=== PATIENT | female | born 1940 | race Caucasian/White ===

== ENCOUNTER → 2023-02-19 | Outpatient (REF) | payer MEDICARE, SELFPAY ==
[2023-02-19 08:10] LABS: Hematocrit 36.7 % (37-47); Hemoglobin 11.7 g/dL (12.0-15.0); Mean Corp Hgb Conc 31.9 g/dL (32-36); Mean Corpuscular Hgb 28.7 pg (27.0-32.0); Mean Corpuscular Volume 90.2 fL (81-99); Mean Platelet Vol. 9.9 fl (6.2-12.0); Platelet Count 297 K/mm3 (150-450); RBC Distribution Width CV 13.2 % (11.6-14.6); RBC Distribution Width SD 43.6 fl (35.1-43.9); Red Blood Count 4.07 M/mm3 (4.2-5.4); White Blood Count 8.3 K/mm3 (4.4-11.0)
[2023-02-19 08:32] LABS: Anion Gap 3 (5-15); BUN 18 mg/dL (7-18); BUN/Creat Ratio 20.2 RATIO (10-20); Calcium,Total 8.7 mg/dL (8.5-10.1); Chloride 107 mmol/L (98-107); Cholesterol 142 mg/dL (200); Creatinine, Serum 0.89 mg/dL (0.55-1.02); EST Glomerular Filtration Rate 64 mL/min (>60); Est Glom Filt Rate - Afr Amer 77 mL/min (>60); Glucose 90 mg/dL (74-106); High Density Lipoprotein 68 mg/dL; Sodium Level 141 mmol/L (136-145); Triglycerides 66 mg/dL; Very Low Density Lipoprotein 13 mg/dL (5-40)
[2023-02-19 08:34] LABS: Hemoglobin A1c 5.7 % (3.8-5.6)
== END ==
LOC: OLS.WCC 04:55
PROVIDERS: Referring Provider Family Medicine; Visit Provider Family Medicine
DX: R73.09 Other abnormal glucose (principal); I10 Essential (primary) hypertension; E78.5 Hyperlipidemia, unspecified
CPT/HCPCS: 36415; 80048; 80061; 83036; 85027

== ENCOUNTER → 2023-05-21 | Outpatient (REF) | payer MEDICARE, SELFPAY ==
[2023-05-21 08:29] LABS: Hematocrit 37.4 % (37-47); Hemoglobin 11.7 g/dL (12.0-15.0); Mean Corp Hgb Conc 31.3 g/dL (32-36); Mean Corpuscular Hgb 28.4 pg (27.0-32.0); Mean Corpuscular Volume 90.8 fL (81-99); Mean Platelet Vol. 9.9 fl (6.2-12.0); Platelet Count 310 K/mm3 (150-450); RBC Distribution Width CV 13.2 % (11.6-14.6); RBC Distribution Width SD 43.8 fl (35.1-43.9); Red Blood Count 4.12 M/mm3 (4.2-5.4); White Blood Count 6.8 K/mm3 (4.4-11.0)
[2023-05-21 08:57] LABS: Anion Gap 5 (5-15); BUN 23 mg/dL (7-18); BUN/Creat Ratio 29.9 RATIO (10-20); Calcium,Total 8.7 mg/dL (8.5-10.1); Chloride 108 mmol/L (98-107); Creatinine, Serum 0.77 mg/dL (0.55-1.02); EST Glomerular Filtration Rate 76 mL/min (>60); Est Glom Filt Rate - Afr Amer 92 mL/min (>60); Glucose 101 mg/dL (74-106); Potassium 3.7 mmol/L (3.5-5.1); Sodium Level 141 mmol/L (136-145)
== END ==
LOC: OLS.WCC 05:00
PROVIDERS: Visit Provider Family Medicine
DX: R73.09 Other abnormal glucose (principal); F03.90 Unspecified dementia, unspecified severity, without behavioral disturbance, psychotic disturbance, mood disturbance, and anxiety; I10 Essential (primary) hypertension; Z79.899 Other long term (current) drug therapy; Z86.73 Personal history of transient ischemic attack (TIA), and cerebral infarction without residual deficits
CPT/HCPCS: 36415; 80048; 85027

== ENCOUNTER 2023-08-04 13:22 | Emergency (ER) | payer MEDICARE, SELFPAY ==
[2023-08-04 13:23] VITALS: BP 128/57; PULSE 87; RESP 16; TEMP 36.5; O2SAT 96; BMI 20.1
--- NOTE | 2023-08-04 13:31 | CT_ITS ---
EXAM: CT HEAD WITHOUT INTRAVENOUS CONTRAST CLINICAL INDICATION: head injury TECHNIQUE: Multiple axial images were obtained of the head without intravenous contrast. This CT exam was performed using one or more of the following dose reduction techniques: automated exposure control, adjustment of the mA and/or kV according to patient size, and/or use of iterative reconstruction technique. RADIATION DOSE: CTDIvol = 44.99 mGy, DLP = 779.24 mGy-cm COMPARISON: No relevant prior studies available. FINDINGS: BRAIN AND EXTRA-AXIAL SPACES: Hypodensities in the forceps minor and forceps major are confluent chronic white matter ischemic changes. Moderate cerebral atrophy, more central and cortical accounting for diminished central white matter volume, prominent cerebral sulci and disproportionate dilatation of the third and lateral ventricles. Normal cerebral aqueduct and fourth ventricle. No intra- or extra-axial hemorrhage. No intracranial mass or mass effect. Posterior fossa structures are unremarkable. Basal cisterns are patent. BONES/JOINTS: See above. VASCULATURE: Dense calcified plaques along the bilateral internal carotid artery siphons. Minimal calcified plaques in the intradural segments of both vertebral arteries. SINUSES: Unremarkable as visualized. Clear. MASTOID AIR CELLS: Unremarkable. Clear. ORBITS: Visualized globes, extraocular muscles, optic nerves and retrobulbar fat appear unremarkable. CT/Brain/Head without Contrast IMPRESSION: 1. No CT evidence of intracranial bleeding, intracranial mass, acute ischemic infarct or acute intracranial pathology. 2. Moderate cerebral atrophy and chronic white matter ischemic changes in both cerebral hemispheres. Electronically Signed: Hector Tolliver MD at 14:23 EST ,
--- NOTE | 2023-08-04 13:32 | EDS_ITS ---
<Statement entered by Norma Wagoner MD - 08/04/23 21:52> I have personally performed a face to face assessment of the patient and have reviewed the MARI Note. Patient sent in from local ECF secondary to fall. Patient reportedly fell and hit her head against a table this morning. She has dementia at baseline. Medication list was reviewed and she is not on anticoagulants. Patient sitting upright in bed no acute distress. No obvious evidence of head trauma. No scalp hematomas noted. Heart is regular rate and rhythm. Lung sounds are clear. Abdomen is soft and nontender. Patient spontaneously moves all 4 extremities. She is confused and does not answer questions. This reportedly is her baseline. CT scan of the head reveals chronic changes with no evidence of acute bleed. Patient discharged back to her ECF. HPI History of Present Illness Chief Complaint: Fall Narrative Narrative: 83-year-old female fell at her long term this morning at 7 AM and hit her head. Details are not clear as she was brought in by EMS. She was acting at her baseline which is alert and oriented x 0 but staff thought her pupils were sluggish and sent her in for evaluation. She is not on blood thinners. She does not speak much at baseline or follow commands. [facility] Medical History (Updated 08/04/23 @ 14:05 by JOCELYN Jarquin) Alzheimer's disease, unspecified Chronic kidney disease, stage 3a Essential (primary) hypertension Hyperlipidemia Major depressive disorder, recurrent, mild Other abnormalities of gait and mobility Vascular dementia, unspecified severity, without behavioral disturbance, psychotic disturbance, mood disturbance, and anxiety Home Medications amlodipine 2.5 mg tablet 2.5 mg PO DAILY 08/04/23 [History Last Taken Unknown] aspirin 81 mg tablet,delayed release (Adult Aspirin Regimen) 81 mg PO DAILY 08/04/23 [History Last Taken Unknown] doxepin 25 mg capsule 25 mg PO QHS 08/04/23 [History Last Taken Unknown] escitalopram oxalate 10 mg tablet 10 mg PO DAILY 08/04/23 [History Last Taken Unknown] hydrochlorothiazide 25 mg tablet 25 mg PO DAILY 08/04/23 [History Last Taken Unknown] lisinopril 10 mg tablet 10 mg PO DAILY 08/04/23 [History Last Taken Unknown] melatonin 10 mg capsule 10 mg PO QHS 08/04/23 [History Last Taken Unknown] multivitamin (Daily Multi-Vitamin tablet) 1 tab PO DAILY 08/04/23 [History Last Taken Unknown] potassium chloride 10 mEq tablet,extended release (Klor-Con) 10 meq PO DAILY 08/04/23 [History Last Taken Unknown] sennosides 8.6 mg tablet (Natural Senna Laxative) 17.2 mg PO DAILY 08/04/23 [History Last Taken Unknown] Allergy/AdvReac Type Severity Reaction Status Date / Time No Known Allergies Allergy Verified 08/04/23 13:25 Social History (System 04/17/23 @ 07:56 by Colleen Romano) Smoking Status: Unknown if ever smoked ROS ROS ED ROS Narrative Unable to obtain due to dementia EXAM Physical Exam Narrative Exam Narrative: CONST: Patient sitting in no acute distress. EYES: Normal inspection. PERRL. HEAD: Head normocephalic atraumatic, no raccoon eyes or grider sign, no hemotympanum, no nasal septal hematoma, no CSF otorrhea or rhinorrhea. NECK: Normal inspection. No tenderness, no step-offs. RESP: No respiratory distress, CTAB. CVS: Regular rate and rhythm, no murmur, no gallop. ABD: Soft and nontender, no guarding or rebound, nondistended. SKIN: Color normal, no rash, warm, dry, intact. EXTREMITIES: Normal appearance, no pedal edema. NEURO: Awake, does not interact or follow commands, does not speak. Moving all extremities. PSYCH: Normal affect. Const Vital Signs: 08/04/23 13:23 Temperature 97.7 F L Temperature Source Temporal Pulse Rate 87 Respiratory Rate 16 Blood Pressure 128/57 H Blood Pressure Mean 80 Pulse Ox 96 Oxygen Delivery Method Room Air MDM MDM MDM Narrative Medical decision making narrative: History gathered from: EMS Patient with advanced dementia had a fall at her long term this morning with head injury. Staff was concerned her pupils were sluggish. She is awake and in no distress. She does not talk or interact which is her baseline. Alert to 0. She has no external signs of injury and is spontaneously moving all extremities. CT brain shows no evidence of traumatic injury. Staff member from long term arrived and I relayed these results and she was discharged in stable condition. Differential: Closed head injury, skull fracture, intracranial hemorrhage Radiography Diagnostic Testing: Clinical Impression(s) from Imaging Studies Brain CT 08/04/23 13:31 IMPRESSION: 1. No CT evidence of intracranial bleeding, intracranial mass, acute ischemic infarct or acute intracranial pathology. 2. Moderate cerebral atrophy and chronic white matter ischemic changes in both cerebral hemispheres. Electronically Signed: Hector Tolliver MD at 14:23 EST , Discharge Plan Triage Chief Complaint: Fall ED Midlevel Provider: Demetrice Aragon ED Provider: Norma Wagoner Dx/Rx/DC Orders Clinical Impression: Head injury Instructions: ED Fall Prevention Prescriptions: No Action amlodipine 2.5 mg tablet 2.5 mg PO DAILY aspirin [Adult Aspirin Regimen] 81 mg tablet,delayed release (DR/EC) 81 mg PO DAILY doxepin 25 mg capsule 25 mg PO QHS escitalopram oxalate 10 mg tablet 10 mg PO DAILY hydrochlorothiazide 25 mg tablet 25 mg PO DAILY potassium chloride [Klor-Con 10] 10 mEq tablet extended release 10 meq PO DAILY lisinopril 10 mg tablet 10 mg PO DAILY melatonin 10 mg capsule 10 mg PO QHS multivitamin [Daily Multi-Vitamin] Tablet 1 tab PO DAILY sennosides [Natural Senna Laxative] 8.6 mg tablet 17.2 mg PO DAILY Primary Care Provider: Biju Camacho Referrals: Biju Camacho MD [Primary Care Provider] - Activity Restrictions/Additional Instructions: CT scan of the brain showed no evidence of traumatic injury from today's fall. Disposition Disposition: Home, Self Care
--- OUTSIDE RECORDS SUMMARY | 2023-08-04 14:26 | XMS RPT_ITS | CCD ---
Author Name Unknown Address [address] [place] [address] Organization [facility] Care Team Providers Care [employer] Crewmember Name Role Phone Anna Shanks MD Primary Care Provider ANNA SHANKS Primary Care Unavailable RANDEE AGUIRRE Attending Unavailable BROWN, JOCELYNE Referring Unavailable TALAMPSAJI, ANNA Ruth Primary Care Unavailable RADHA BROWNI Referring Unavailable SUSANA, JOCELYNE Attending Unavailable ROSA, ANNA Ruth Primary Care Unavailable MANDEEPAMPSAJI, ANNA Ruth Primary Care Unavailable RADHA BROWNI Referring Unavailable BROWN, JOCELYNE Attending Unavailable MANDEEPAMPSAJI, ANNA D Primary Care Unavailable TALAMPAS, ANNA D Primary Care Unavailable RANDEE AGUIRRE Attending Unavailable TALAMPSAJI, ANNA Ruth Attending Unavailable ROSA, ANNA D Primary Care Unavailable Medications Current Medications Medication Drug Class(es) Dates Sig (Normalized) Sig (Original) amLODIPine 2.5 mg oral tablet (15 sources) Dihydropyridine Calcium Channel Nakul Start: 05-17-2022 End: 05-17-2023 take 1 tablet by mouth once daily amLODIPine (NORVASC) 2.5 mg tablet Indications: Hypertension, unspecified type Take 1 tablet by mouth once daily. 90 tablet 3 05/17/2022 05/17/2023 Active Completed/Discontinued Medications Medication Drug Class(es) Dates Sig (Normalized) Sig (Original) donepezil hydrochloride 10 mg oral tablet (15 sources) Start: 05-17-2022 take 1 tablet by mouth once daily at bedtime donepezil (ARICEPT) 10 mg tablet Indications: Alzheimer's dementia without behavioral disturbance, unspecified timing of dementia onset Take 1 tablet(s) every day by oral route at bedtime 90 tablet 3 05/17/2022 Active Problems Active Problems Problem Classification Problem Date Documented Da te Episodic/Chronic Acute cerebrovascular disease (17 sources) Cerebral infarction; Translations: [Cerebral infarction due to unspecified occlusion or stenosis of unspecified precerebral arteries] Onset: 02-27-2019 Chronic Chronic kidney disease (9 sources) Chronic kidney disease stage 3A ; Translations: [Stage 3a chronic kidney disease (HCC)] Onset: 04-04-2022 Chronic Chronic kidney disease (1 source) Chronic kidney disease; Translations: [Stage 3a chronic kidney disease (HCC)] Onset: 04-04-2022 Delirium, dementia, and amnestic and other cognitive disorders (20 sources) Alzheimer's disease; Translations: [Alzheimer's disease, unspecified] Onset: 02-27-2019 Chronic Disorders of lipid metabolism (18 sources) Hyperlipidemia; Translations: [Hyperlipidemia, unspecified] Onset: 02-27-2019 Chronic Essential hypertension (20 sources) Hypertensive disorder; Translations: [Essential (primary) hypertension] Onset: 02-27-2019 Chronic Immunizations and screening for infectious disease (8 sources) Requires varicella vaccination; Translations: [Encounter for immunization] Onset: 04-04-2022 Episodic Mood disorders (19 sources) Depressive disorder; Translations: [Depression] Onset: 04-20-2022 02-27-2019 Chronic Other nervous system disorders (1 source) Impairment of balance; Translations: [Other abnormalities of gait and mobility] Episodic Other nervous system disorders (1 source) Abnormal gait; Translations: [Unspecified abnormalities of gait and mobility] Episodic Past or Other Problems Problem Classification Problem Date Documented Date Episodic/Chronic Diabetes mellitus without complication (17 sources) Disorder of glucose metabolism; Translations: [Other abnormal glucose] Onset: 02-23-2021 02-23-2021 Episodic Other nervous system disorders (15 sources) Abnormal gait due to impairment of balance; Translations: [Other abnormalities of gait and mobility] Onset: 11-18-2020 11-18-2020 Episodic Results Test Name Value Interpretation Reference Range Facil ity Vital Signs Date Time Vital Sign Value Performing Clinician Raimundo forte 11-03-2022 13:28-040 Body weight 53.52 kg Jocelyne Brown APRN.BRAKE REPAIR MECHANIC Work Phone: [facility] 11-03-2022 13:28-040 Diastolic blood pressure 56 mm[Hg] Jocelyne Brown APRN.BRAKE REPAIR MECHANIC Work Phone: [facility] 11-03-2022 13:28-0400 Heart rate 60 /min Jocelyne Brown MANAGER INDUSTRIAL.BRAKE REPAIR MECHANIC Work Phone: [facility] 11-03-2022 13:28-0400 Respiratory rate 14 /min Jocelyne Brown MANAGER INDUSTRIAL.BRAKE REPAIR MECHANIC Work Phone: [facility] 11-03-2022 13:28-0400 SaO2% (BldA) [Mass fraction] 98 % Jocelyne Brown MANAGER INDUSTRIAL.BRAKE REPAIR MECHANIC Work Phone: [facility] 11-03-2022 13:28-0400 Systolic blood pressure 108 mm[Hg] Jocelyne Brown MANAGER INDUSTRIAL.BRAKE REPAIR MECHANIC Work Phone: [facility] 08-22-2022 18:36-0500 Body temperature 98.1 [degF] Anna Shanks MD Work Phone: [facility] 08-22-2022 18:36-0500 Body weight 52.94 kg Anna Shanks MD Work Phone: [facility] 08-22-2022 18:36-0500 Diastolic blood pressure 82 mm[Hg] Anna Shanks MD Work Phone: [facility] 08-22-2022 18:36-0500 Heart rate 87 /min Anna Shanks MD Work Phone: [facility] 08-22-2022 18:36-0500 Respiratory rate 18 /min Anna Shanks MD Work Phone: [facility] 08-22-2022 18:36-0500 SaO2% (BldA) [Mass fraction] 95 % Anna Shanks MD Work Phone: [facility] 08-22-2022 18:36-0500 Systolic blood pressure 124 mm[Hg] Anna Shanks MD Work Phone: [facility] 04-04-2022 09:44-0400 Body height 146.1 cm Jocelyne Brown MANAGER INDUSTRIAL.BRAKE REPAIR MECHANIC Work Phone: [facility] 04-04-2022 09:44-0400 Body weight 52.16 kg Jocelyne Brown MANAGER INDUSTRIAL.BRAKE REPAIR MECHANIC Work Phone: [facility] 04-04-2022 09:44-0400 Diastolic blood pressure 58 mm[Hg] Jocelyne Brown MANAGER INDUSTRIAL.BRAKE REPAIR MECHANIC Work Phone: [facility] 04-04-2022 09:44-0400 Heart rate 60 /min Jocelyne Costellos MANAGER INDUSTRIAL.BRAKE REPAIR MECHANIC Work Phone: [facility] 04-04-2022 09:44-0400 Respiratory rate 16 /min Jocelyne Costellos MANAGER INDUSTRIAL.BRAKE REPAIR MECHANIC Work Phone: [facility] 04-04-2022 09:44-0400 Systolic blood pressure 108 mm[Hg] Jocelyne Costellos MANAGER INDUSTRIAL.BRAKE REPAIR MECHANIC Work Phone: [facility] Encounters Encounter Date Encounter Type Care Provider Facility Start: 11-28-2022 ambulatory Patito Parra RN [facility] Procedures Date Procedure Procedure Detail Performing Clinician Start: 09-18-2022 Follow-up visit Follow Up WESTON AGUIRRE Start: 08-22-2022 INFLUENZA SEASONAL QUADRIVALENT HIGH DOSE AGE 65+ Anna Shanks MD Work Phone: Plan of Treatment Date Care Activity Detail Author Start: 11-03-2025 DIABETES SCREEN DIABETES SCREEN [facility] Start: 04-04-2025 DIABETES SCREEN DIABETES SCREEN [facility] Start: 11-28-2023 DIABETES SCREEN DIABETES SCREEN [facility] Start: 08-22-2023 SHINGRIX VACCINE (1 of 2) SHINGRIX V ACCINE (1 of 2) [facility] Immunizations Immunization Date Immunization Notes Care Provider Rohit carlisle 08-22-2022 influenza, high-dose , quadrivalent vaccine (FLUZONE HIGH DOSE QUADRIVALENT) Anna Shanks MD Work Phone: [facility] 10-10-2021 COVID-19 vaccine, ag e 12+ yr (PFIZER-BIONTECH - MARINELLI TOP) Whitney Espino [facility] Work Phone: 12-17-2020 COVID-19 vaccine, ag e 12+ yr (PFIZER-BIONTECH - PURPLE TOP) Whitney Espino [facility] Work Phone: 11-26-2020 COVID-19 vaccine, ag e 12+ yr (PFIZER-BIONTQueryly - PURPLE TOP) [facility] 08-17-2020 influenza, high-dose , quadrivalent vaccine (FLUZONE HIGH DOSE QUADRIVALENT) [facility] 08-29-2019 pneumococcal polysaccharide vaccine, 23 valent [facility] 08-22-2019 influenza, high dose seasonal, preservative-free [facility] 04-25-2018 influenza, high dose seasonal, preservative-free [facility] 04-20-2017 influenza, high dose seasonal, preservative-free [facility] 09-07-2015 pneumococcal conjuga te vaccine, 13 valent [facility] Payers Date Payer Category Payer Medicare UHC AAR MEDICAR E UHC AARP MEDICARE HMO [id number] 2019-Present [phone] [address] [address] [place] [address] [facility] [id number] 2019 Medicare UHC AAR MEDICAR E UHC AARP MEDICARE HMO [id number] 2019-Present [phone] [address] [address] [place] [address] [facility] [id number] 2019 Medicare [id number] Social History Date Type Detail Facility Start: 02-27-2019 End: 04-04-2022 Tobacco smoking status NHIS Never smoked tobacco [facility] Work Phone: Start: 02-27-2019 End: 04-04-2022 Tobacco use and exposure Smokeless tobacco non-user [facility] Work Phone: Start: 02-23-2021 End: 11-03-2022 Alcohol intake Lifetime non-drinker (finding) [facility] Start: 02-14-2021 History SDOH Alcohol Frequency 1 [facility] Start: 02-14-2021 History SDOH Alcohol Std Drinks 98 [facility] Start: 05-22-2019 History SDOH Alcohol Comment none [facility] Start: 02-14-2021 History SDOH Social Connections Phone 2 [facility] Start: 02-14-2021 History SDOH Social Connections Get Together 5 [facility] Start: 02-14-2021 History SDOH Social Connections Living 7 [facility] Start: 02-14-2021 Education 17 [facility] Start: 1940 Sex Assigned At Not on file [facility] Start: 03-25-2022 End: 04-04-2022 Exposure to SARS-CoV-2 (event) Not sure [facility] Work Phone: Clinical Notes 11-16-2021 to 11-28-2022 Patito Parra RN - 11/28/2022 5:52 AM Aisha Brown APRN.BRAKE REPAIR MECHANIC - 11/03/2022 1:20 PM EDTTelephone Encounter - Josefina García LPN - 10/31/2022 11:17 AM EDTPatient Instructions Note Date & Type Note Facility 11-28-2022 Note Patient Outreach (NE TNAV) LORAINE GOFF ([id number]) 1940 F Date Time Provider Department 11/28/22 PATITO PARRA During your visit today, we recorded the following information about you: Patito Parra RN 11/28/2022 5:55 AM Signed ACM WADE RN Action/FYI: Medication Adherence review completed per request of [facility]. NO PROVIDER ACTION REQUIRED Please see requests in the Summary/Findings section below Patient identified by name and date of . Patient Attributed To: QAE Payer: [facility] Reason for review or outreach: Medication Adherence Medication Adherence Review Details: Cholesterol and Hypertension Summary / Findings: Patient is now living at [facility] where they take care of her meds Action Taken: Data submitted to Payer Other Contact made with patient: No, Chart review only. Signature: Patito Parra RN Allergies As of Date: 11/28/2022 (No Known Allergies) Date Reviewed: 11/03/2022 Reviewed by: Jennifer Trimble LPN - Fully Assessed Reason for Visit: ACM WADE RN [[id number]] Cmt: Medication Adherence review per request of payer Prescriptions as of 11/28/2022 - escitalopram oxalate (LEXAPRO) 10 mg tablet Take 1 tablet by mouth once daily. - lisinopril (ZESTRIL, PRINIVIL) 10 mg tablet Take 1 tablet by mouth once daily. - donepezil (ARICEPT) 10 mg tablet Take 1 tablet(s) every day by oral route at bedtime - potassium chloride (K-TAB) 10 mEq tablet Take 1 tablet by mouth daily with breakfast. - amLODIPine (NORVASC) 2.5 mg tablet Take 1 tablet by mouth once daily. - rosuvastatin (CRESTOR) 10 mg tablet Take 1 tablet by mouth once daily. - aspirin, enteric coated (ASPIRIN, ENTERIC COATED) 81 mg EC tablet Take 1 tablet by mouth once daily. - hydroCHLOROthiazide (HYDRODIURIL, ESIDRIX) 25 mg tablet Take 1 tablet by mouth once daily. - Multivitamin capsule Take 1 capsule by mouth once daily. Problem List As Of Date 11/28/2022 Noted Resolved Hypertension [I10] Hyperlipemia [E78.5] Depression [F32.A] Cerebral infarction due to occlusion or stenosi* Alzheimer disease [G30.9, F02.80] Mixed cortical and subcortical vascular dementi*11/18/2020 Abnormality of gait due to impairment of balanc*11/18/2020 Impaired glucose metabolism [R73.09] 02/23/2021 Stage 3a chronic kidney disease (HCC) [N18.31] 04/04/2022 Mixed Alzheimer's and vascular dementia (HCC) [*04/20/2022 Mild depression [F32.A] 04/20/2022 Encounter Status:Closed by PATITO PARRA on 11/28/22 [facility] 11-28-2022 Note HNO ID: [id number] Author: Patito Parra RN Service: ? Author Type: Registered Nurse Type: Progress Notes Filed: 11/28/2022 5:55 AM Note Text: ACM WADE RN Action/FYI: Medication Adherence review completed per request of [facility]. NO PROVIDER ACTION REQUIRED Please see requests in the Summary/Findings section below Patient identified by name and date of . Patient Attributed To: CANDELARIA Payer: [facility] [employer] Reason for review or outreach: Medication Adherence Medication Adherence Review Details: Cholesterol and Hypertension Summary / Findings: Patient is now living at [facility] where they take care of her meds Action Taken: Data submitted to Pay Other Contact made with patient: No, Chart review only. Signature: Patito Parra RN [facility] 11-28-2022 History of Present illness Narrative ACM WADE RN Action/FYI: Medication Adherence review completed per request of [facility]. NO PROVIDER ACTION REQUIRED Please see requests in the Summary/Findings section below Patient identified by name and date of . Patient Attributed To: QAE Payer: [facility] Reason for review or outreach: Medication Adherence Medication Adherence Review Details: Cholesterol and Hypertension Summary / Findings: Patient is now living at [facility] where they take care of her meds Action Taken: Data submitted to Pay Other Contact made with patient: No, Chart review only. Signature: Patito Parra RN documented in this encounter [facility] 11-03-2022 Note HNO ID: [id number] Author: Jocelyne Brown APRN.BRAKE REPAIR MECHANIC Service: ? Author Type: Nurse Specialist Type: Progress Notes Filed: 11/03/2022 2:13 PM Note Text: Subjective HPI Loraine Goff is a 82 year old female. 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 SNF. Presents today with family member that provides HPI. Currently living with family. Notes no behavioral concerns. Sleeping well. Maintaining oral intake. Notes difficulty with arising from chair and taking stairs, some decreased mobility. Brain health / neurology appointment 09/2022, noted mixed Alzheimer's and vascular dementia. Mild depression. Noted deficits in forming new memory Visio spatial skills learning planning tasks keeping track of events that have happened, memory and word retrieval attention multitasking: Verbal fluency language abstraction judgment and thinking. Increasing difficulty with ADLs. Some wandering is noted. Some status post anterior overdose later in the day with confusion consistent with owning. Started on escitalopram 5 mg 04/2022, increased to 10 mg 09/2022.Continued on donepezil. Labwork ordered not yet completed. HTN: Ms. Goff is without headache, chest pain, palpitations, dyspnea, peripheral edema, orthopnea, fatigue and PND. Last 14 Encounter BP Readings: Date: BP: 11/03/2022 108/56 08/22/2022 124/82 04/19/2022 163/57 04/04/2022 108/58 11/18/2020 135/49 08/17/2020 100/80 03/19/2020 110/60 02/12/2020 110/43 11/24/2019 122/76 08/29/2019 132/70 05/22/2019 122/57 02/27/2019 130/60 Hyperlipidemia. Ms. Goff doing well on current therapy. Her most recent lipid panels are: Cholesterol, Total (mg/dL) Date Value 04/04/2022 169 Total Cholesterol, Nonfasting (mg/dL) Date Value 03/19/2020 167 HDL Cholesterol (mg/dL) Date Value 04/04/2022 71 HDL Cholesterol, Nonfasting (mg/dL) Date Value 03/19/2020 72 LDL Cholesterol (mg/dL) Date Value 04/04/2022 82 LDL Cholesterol, Nonfasting (mg/dL) Date Value 03/19/2020 77 Triglyceride (mg/dL) Date Value 04/04/2022 82 Triglycerides, Nonfasting (mg/dL) Date Value 03/19/2020 90 Review of Systems Constitutional: Negative. Respiratory: Negative. Cardiovascular: Negative. Objective BP 108/56 Pulse 60 Resp 14 Wt 53.5 kg (118 lb) SpO2 98% BMI 25.09 kg/m? Physical Exam Vitals and nursing note reviewed. Constitutional: General: She is not in acute distress. Appearance: She is well-developed. She is not diaphoretic. HENT: Head: Normocephalic and atraumatic. Eyes: Conjunctiva/sclera: Conjunctivae normal. Neck: Thyroid: No thyromegaly. Vascular: No JVD. Trachea: No tracheal deviation. Cardiovascular: Rate and Rhythm: Normal rate and regular rhythm. Pulses: Carotid pulses are 2+ on the right side and 2+ on the left side. Radial pulses are 2+ on the right side and 2+ on the left side. Heart sounds: Normal heart sounds. Pulmonary: Effort: Pulmonary effort is normal. Breath sounds: Normal breath sounds. Abdominal: General: Bowel sounds are normal. Palpations: Abdomen is soft. Lymphadenopathy: Cervical: No cervical adenopathy. Skin: General: Skin is warm and dry. Neurological: Mental Status: She is alert. ALLERGIES No Known Allergies Current Outpatient Medications Medication Sig escitalopram oxalate (LEXAPRO) 10 mg tablet Take 1 tablet by mouth once daily. lisinopril (ZESTRIL, PRINIVIL) 10 mg tablet Take 1 tablet by mouth once daily. donepezil (ARICEPT) 10 mg tablet Take 1 tablet(s) every day by oral route at bedtime potassium chloride (K-TAB) 10 mEq tablet Take 1 tablet by mouth daily with breakfast. amLODIPine (NORVASC) 2.5 mg tablet Take 1 tablet by mouth once daily. rosuvastatin (CRESTOR) 10 mg tablet Take 1 tablet by mouth once daily. aspirin, enteric coated (ASPIRIN, ENTERIC COATED) 81 mg EC tablet Take 1 tablet by mouth once daily. hydroCHLOROthiazide (HYDRODIURIL, ESIDRIX) 25 mg tablet Take 1 tablet by mouth once daily. Multivitamin capsule Take 1 capsule by mouth once daily. No current facility-administered medications for this visit. PAST MEDICAL HISTORY Diagnosis Date Alzheimer disease (HCC) Cerebral infarction due to occlusion or stenosis of precerebral artery (HCC) 2016 Depression Hyperlipemia Hypertension Social History Tobacco Use Smoking status: Never Smokeless tobacco: Never Vaping Use Vaping Use: Never u (more content not included)... [facility] 11-03-2022 History of Present illness Narrative Subjective HPI Loraine Goff is a 82 year old female. 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 SNF. Presents today with family member that provides HPI. Currently living with family. Notes no behavioral concerns. Sleeping well. Maintaining oral intake. Notes difficulty with arising from chair and taking stairs, some decreased mobility. Brain health / neurology appointment 09/2022, noted mixed Alzheimer's and vascular dementia. Mild depression. Noted deficits in forming new memory Visio spatial skills learning planning tasks keeping track of events that have happened, memory and word retrieval attention multitasking: Verbal fluency language abstraction judgment and thinking. Increasing difficulty with ADLs. Some wandering is noted. Some status post anterior overdose later in the day with confusion consistent with sundowning. Started on escitalopram 5 mg 04/2022, increased to 10 mg 09/2022.Continued on donepezil. Labwork ordered not yet completed. HTN: Ms. Goff is without headache, chest pain, palpitations, dyspnea, peripheral edema, orthopnea, fatigue and PND. Last 14 Encounter BP Readings: Date: BP: 11/03/2022 108/56 08/22/2022 124/82 04/19/2022 163/57 04/04/2022 108/58 11/18/2020 135/49 08/17/2020 100/80 03/19/2020 110/60 02/12/2020 110/43 11/24/2019 122/76 08/29/2019 132/70 05/22/2019 122/57 02/27/2019 130/60 Hyperlipidemia. Ms. Goff doing well on current therapy. Her most recent lipid panels are: Cholesterol, Total (mg/dL) Date Value 04/04/2022 169 Total Cholesterol, Nonfasting (mg/dL) Date Value 03/19/2020 167 HDL Cholesterol (mg/dL) Date Value 04/04/2022 71 HDL Cholesterol, Nonfasting (mg/dL) Date Value 03/19/2020 72 LDL Cholesterol (mg/dL) Date Value 04/04/2022 82 LDL Cholesterol, Nonfasting (mg/dL) Date Value 03/19/2020 77 Triglyceride (mg/dL) Date Value 04/04/2022 82 Triglycerides, Nonfasting (mg/dL) Date Value 03/19/2020 90 Review of Systems Constitutional: Negative. Respiratory: Negative. Cardiovascular: Negative. Objective BP 108/56 Pulse 60 Resp 14 Wt 53.5 kg (118 lb) SpO2 98% BMI 25.09 kg/m Physical Exam Vitals and nursing note reviewed. Constitutional: General: She is not in acute distress. Appearance: She is well-developed. She is not diaphoretic. HENT: Head: Normocephalic and atraumatic. Eyes: Conjunctiva/sclera: Conjunctivae normal. Neck: Thyroid: No thyromegaly. Vascular: No JVD. Trachea: No tracheal deviation. Cardiovascular: Rate and Rhythm: Normal rate and regular rhythm. Pulses: Carotid pulses are 2+ on the right side and 2+ on the left side. Radial pulses are 2+ on the right side and 2+ on the left side. Heart sounds: Normal heart sounds. Pulmonary: Effort: Pulmonary effort is normal. Breath sounds: Normal breath sounds. Abdominal: General: Bowel sounds are normal. Palpations: Abdomen is soft. Lymphadenopathy: Cervical: No cervical adenopathy. Skin: General: Skin is warm and dry. Neurological: Mental Status: She is alert. ALLERGIES No Known Allergies Current Outpatient Medications Medication Sig escitalopram oxalate (LEXAPRO) 10 mg tablet Take 1 tablet by mouth once daily. lisinopril (ZESTRIL, PRINIVIL) 10 mg tablet Take 1 tablet by mouth once daily. donepezil (ARICEPT) 10 mg tablet Take 1 tablet(s) every day by oral route at bedtime potassium chloride (K-TAB) 10 mEq tablet Take 1 tablet by mouth daily with breakfast. amLODIPine (NORVASC) 2.5 mg tablet Take 1 tablet by mouth once daily. rosuvastatin (CRESTOR) 10 mg tablet Take 1 tablet by mouth once daily. aspirin, enteric coated (ASPIRIN, ENTERIC COATED) 81 mg EC tablet Take 1 tablet by mouth once daily. hydroCHLOROthiazide (HYDRODIURIL, ESIDRIX) 25 mg tablet Take 1 tablet by mouth once daily. Multivitamin capsule Take 1 capsule by mouth once daily. No current facility-administered medications for this visit. PAST MEDICAL HISTORY Diagnosis Date Alzheimer disease (HCC) Cerebral infarction due to occlusion or stenosis of precerebral artery (HCC) 2016 Depression Hyperlipemia Hypertension Social History Tobacco Use Smoking status: Never Smokeless tobacco: Never Vaping Use Vaping Use: Never used Substance Use Topics Alcohol use: Never Comment: none Drug use: Never Component Latest Ref Rng & Units 04/04/2022 WBC 3.70 - 11.00 k/uL 7.80 RBC 3.90 - 5.20 m/uL 4.51 Hemoglobin 11.5 - 15.5 g/dL 12.8 Hematocrit 36.0 - 46.0 % 40.6 MCV 80.0 - 100.0 fL 90.0 MCH 26.0 - 34.0 pg 28.4 MCHC 30.5 - 36.0 g/dL 31.5 RDW-CV 11.5 - 15.0 % 13.8 Platelet Count 150 - 400 k/uL 279 MPV 9.0 - 12.7 fL 10.5 Neut% % 50.8 Abs Neut (ANC) 1.45 - 7.50 k/uL 3.96 Lymph% % 36.7 Abs Lymph 1.00 - 4.00 k/uL 2.86 Sierra% % 10.6 Abs Sierra <0.87 k/uL 0.83 Eosin% % 1.7 Abs Eosin <0.46 k/uL 0.13 Baso% % 0.1 Abs Baso <0.11 k/uL <0.03 Immature Gran % % 0.1 IMMATURE GRANS (ABS) <0.10 k/uL <0.03 NRBC /100 WBC 0.0 Absolute nRBC <0.01 k/uL <0.01 DTYPE Auto Protein, Total 6.3 - 8.0 g/dL 7.4 Albumin 3.9 - 4.9 g/dL 4.1 Calcium 8.5 - 10.2 mg/dL 10.1 Bilirubin, Total 0.2 - 1.3 mg/dL 0.6 Alkaline Phosphatase 34 - 123 U/L 112 AST 13 - 35 U/L 28 ALT 7 - 38 U/L 16 Glucose 74 - 99 mg/dL 108 (H) BUN 7 - 21 mg/dL 32 (H) Creatinine 0.58 - 0.96 mg/dL 1.26 (H) Sodium 136 - 144 mmol/L 140 Potassium 3.7 - 5.1 mmol/L 4.2 Chloride 97 - 105 mmol/L 102 CO2 22 - 30 mmol/L 27 Anion Gap 9 - 18 mmol/L 11 eGFR >=60 mL/min/1.73m 42 (L) Cholesterol, Total <200 mg/dL 169 Triglyceride <150 mg/dL 82 HDL Cholesterol >39 mg/dL 71 Non HDL Cholesterol <130 mg/dL 98 Fasting Time hrs 12 VLDL Cholesterol <30 mg/dL 16 TC:HDL Ratio <5.10 2.38 LDL Cholesterol <100 mg/dL 82 LDL:HDL Ratio <2.54 1.15 Hemoglobin A1C 4.3 - 5.6 % 5.8 (H) Estimated Average Glucose mg/dL 120 ASSESSMENT/PLAN: 1. Alzheimer disease (HCC) - ICD9: 331.0, ICD10: G30.9, F02.80 (primary diagnosis) 2. 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) - ICD9: 290.40, ICD10: F01.50 3. 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 Followed by neurology provider [facility] - follow up March 2023 advised, needs to be scheduled 4. Screening for tuberculosis - ICD9: V74.1, ICD10: Z11.1 - BLOOD TB SCREEN 5. Primary hypertension - ICD9: 401.9, ICD10: I10 controlled Stable, currently controlled, continue to monitor. - COMP METABOLIC PANEL - CBC + DIFF - LIPID PANEL, NONFASTING 6. Hyperlipidemia, unspecified hyperlipidemia type - ICD9: 272.4, ICD10: E78.5 Stable, currently controlled, continue to monitor. - LIPID PANEL, NONFASTING 7. Impaired glucose metabolism - ICD9: 790.29, ICD10: R73.09 - HGB A1C 8. Stage 3a chronic kidney disease (HCC) - ICD9: 585.3, ICD10: N18.31 - COMP METABOLIC PANEL Recommend lab work today, will send when complete to [facility] Schedule neurology appointment. 6 month follow-up with Anna Shanks MD Fax form to [phone] per request. Jocelyne Brown APRN.BRAKE REPAIR MECHANIC Medical Decision Making: Problems: Moderate: 2+ stable chronic illnesses Data: Unique test(s) ordered: 3+ Risk: Low: Low risk from testing/treatment Medical Decision Making Level: 4 - Moderate documented in this encounter [facility] 10-31-2022 Miscellaneous Notes Faxed last office visit, demographic sheet, Immunization Record, Labs to: Attn: Charly, . Josefina García LPN Asia calling stating patient will be moving to [facility]. Admission form is needing updated information. Please fax the most recent physical notes, last labs, office notes and any test results from the previous year. Attn: Charly documented in this encounter [facility] 10-17-2022 Miscellaneous Notes Ashley aware of same. Order placed, please return call and let them know, thanks! Asia Ramirez calling asking for a TB Gold test to be ordered. Please advise and call Ashley. documented in this encounter [facility] 09-18-2022 Note HNO ID: [id number] Author: Randee Aguirre APRN.BRAKE REPAIR MECHANIC Service: ? Author Type: Nurse Specialist Type: Progress Notes Filed: 09/18/2022 3:09 PM Note Text: Loraine Goff 1940 [address] [facility] [address] September 16, 2022 Time: 10:53 AM [facility] VIRTUAL VISIT Accompanied by: Asia Ramirez SUBJECTIVE Loraine Goff is a pleasant 82 year old year old female seen today for a follow up/virtual visit. She is being followed for probable Mixed dementia. Patient was last seen on 04/19/22. Update since the last visit: - Asia Ramirez feels there was some benefit from the low dose Escitalopram 5 mg daily -feels there is room for improvement -pt is more tearful as the day goes on -she attends [facility] in [place] 3 days per week- -they feel she enjoys Other interval history: Falls: negative Sleep: described as normal, feels rested upon waking very good per nilion Mood: Less anxious-room for improvement Functional Abilities Living Situation: With Family ADL's requires assistance with the following ADL's: bathing, toileting, and dressing IADL's: largely dependent Emergency: Pt is never alone Durable POA: Yes Financial POA: Yes Dependent/cannot do Bathing x Dressing x Grooming x Transferring x Eating X (food is cut into small pieces, sometimes improperly uses utensils) Toileting X (some cues to flush toilet, use toilet paper) Continence Maintained Instrumental Activities of Daily Living (IADL) Independent Needs Assistance Dependent/cannot do Telephone x Shopping x Food preparation x Housekeeping X (she makes her bed) Laundry x Driving or transportation x Bills/finances x Medications x PAST MEDICAL HISTORY Diagnosis Date Alzheimer disease (HCC) 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 lisinopril (ZESTRIL, PRINIVIL) 10 mg tablet Take 1 tablet by mouth once daily. donepezil (ARICEPT) 10 mg tablet Take 1 tablet(s) every day by oral route at bedtime potassium chloride (K-TAB) 10 mEq tablet Take 1 tablet by mouth daily with breakfast. amLODIPine (NORVASC) 2.5 mg tablet Take 1 tablet by mouth once daily. rosuvastatin (CRESTOR) 10 mg tablet Take 1 tablet by mouth once daily. aspirin, enteric coated (ASPIRIN, ENTERIC COATED) 81 mg EC tablet Take 1 tablet by mouth once daily. hydroCHLOROthiazide (HYDRODIURIL, ESIDRIX) 25 mg tablet Take 1 tablet by mouth once daily. Multivitamin capsule Take 1 capsule by mouth once daily. No current facility-administered medications on file prior to visit. Neurological Exam: Cognition: alert MoCA: Not assessed today (Previous score: 01/02 in May 2019 ) Orientation: alert Appearance: normal grooming Eye contact: normal Facial expression: appropriate Psychomotor: not assessed really she was sitting on the couch Speech/Language: poverty of speech Mood: Per family-some crying towards the end of the day Affect: pleasant Emotional state: calm and some sadness and crying later in the day per niece Thought Process: unable to assess Thought Content: unable to assess-none reported Hallucinations:None reported Judgment: unable to assess Insight: unable to assess Diagnostic Results: No new results IMPRESSION and ASSESSMENT: 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 Increasing difficulty with ADL's. Pt returns for 5 month follow up visit. In the interim, niece Ashley notes some benefit from the addition Escitalopram 5 mg but offers there is some room for improvement. We agreed to increase Escitalopram to 10 mg daily. Pt was tried on Memantine (Namenda) in the past is no longer taking. She continues to take Donepezil (Aricept) 10 gm daily. She att[facility] 3[facility] per [facility]. (G30.9, F01.50, F02.80) Mixed Alzheimer's and vascular dementia (HCC) (primary encounter diagnosis) Plan: Continue same treatment plan. (F32.A) Mild depression Plan: Increaser Escitalopram to 10 mg daily PLAN -Follow up in 6 months. I spent a total of 25 minutes on the date of the service which included preparing to s (more content not included)... [facility] 08-22-2022 Note HNO ID: [id number] Author: Anna Shanks MD Service: ? Author Type: Physician Type: Progress Notes Filed: 09/19/2022 11:57 AM Note Text: This note was created using [employer]. Subjective Loraine Goff is a 82 year old female. Patient presents with: F/U 6 months SUBJECTIVE: Loraine Goff is a 82 year old year old lady here today for 6 month follow up appointment for review of medical conditions. Niece present Spot on back where tag of clothes tends to touch. Sometimes says bothers her. Skin does not look too different. Noted SKs in upper back area (towards right side; darker colors) and mid back (under bra strap on right; normal skin color) Plans to do Virtual Visit for Dr. Randee Aguirre (neuro) after gets set up on Zoom and [employer]. 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 lisinopril (ZESTRIL, PRINIVIL) 10 mg tablet Take 1 tablet by mouth once daily. donepezil (ARICEPT) 10 mg tablet Take 1 tablet(s) every day by oral route at bedtime potassium chloride (K-TAB) 10 mEq tablet Take 1 tablet by mouth daily with breakfast. amLODIPine (NORVASC) 2.5 mg tablet Take 1 tablet by mouth once daily. rosuvastatin (CRESTOR) 10 mg tablet Take 1 tablet by mouth once daily. aspirin, enteric coated (ASPIRIN, ENTERIC COATED) 81 mg EC tablet Take 1 tablet by mouth once daily. hydroCHLOROthiazide (HYDRODIURIL, ESIDRIX) 25 mg tablet Take 1 tablet by mouth once daily. Multivitamin capsule Take 1 capsule by mouth once daily. No current facility-administered medications for this visit. Review of Systems Objective BP 124/82 Pulse 87 Temp 36.7 ?C (98.1 ?F) Resp 18 Wt 52.9 kg (116 lb 11.2 oz) SpO2 95% BMI 24.82 kg/m? Last 5 Encounter Wt Readings: Date: Wt: 08/22/2022 52.9 kg (116 lb 11.2 oz) 04/19/2022 54 kg (119 lb) 04/04/2022 52.2 kg (115 lb) 11/18/2020 59.3 kg (130 lb 11.2 oz) 08/17/2020 56.2 kg (124 lb) No waist measurement recorded Estimated body mass index is 24.82 kg/m? as calculated from the following: Height as of 04/04/22: 146.1 cm (4' 9.5 ). Weight as of this encounter: 52.9 kg (116 lb 11.2 oz). Last 5 Encounter BP Readings: Date: BP: 08/22/2022 124/82 04/19/2022 163/57 04/04/2022 108/58 11/18/2020 135/49 08/17/2020 100/80 Physical Exam Constitutional: Appearance: Normal appearance. HENT: Head: Normocephalic. Eyes: Conjunctiva/sclera: Conjunctivae normal. Cardiovascular: Rate and Rhythm: Normal rate and regular rhythm. Heart sounds: Normal heart sounds. Pulmonary: Effort: Pulmonary effort is normal. Breath sounds: Normal breath sounds. Skin: General: Skin is warm and dry. Neurological: General: No focal deficit present. Mental Status: She is alert and oriented to person, place, and time. Assessment and Plan Encounter Diagnosis ICD-10-CM 1. Primary hypertension I10 COMP METABOLIC PANEL CBC 2. Impaired glucose metabolism R73.09 COMP METABOLIC PANEL HGB A1C 3. 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 Alzheimer disease (HCC) G30.9 F02.80 5. Hyperlipidemia, unspecified hyperlipidemia type E78.5 LIPID PANEL, NONFASTING 6. Encounter for immunization Z23 INFLUENZA SEASONAL QUADRIVALENT HIGH DOSE AGE 65+ Above issues addressed with patient. Patient involved in shared decision making for management of medical issues. History and medications reviewed. Epic updated as needed Refills and/or prescriptions taken care of and meds adjusted as indicated after reviewed history, exam and labs. Health Maintenance reviewed. Updated record and/or ordered tests as recorded. Encouraged on efforts at healthy diet and regular exercise and adequate sleep. Plans for follow up with neurologist when able to do virtual visit. Anna Shanks MD [facility] 08-22-2022 History of Present illness Narrative This note was created using [employer]. Subjective Loraine Goff is a 82 year old female. Patient presents with: F/U 6 months SUBJECTIVE: Loraine Goff is a 82 year old year old lady here today for 6 month follow up appointment for review of medical conditions. Niece present Spot on back where tag of clothes tends to touch. Sometimes says bothers her. Skin does not look too different. Noted SKs in upper back area (towards right side; darker colors) and mid back (under bra strap on right; normal skin color) Plans to do Virtual Visit for Dr. Randee Aguirre (neuro) after gets set up on [employer] and [employer]. 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 lisinopril (ZESTRIL, PRINIVIL) 10 mg tablet Take 1 tablet by mouth once daily. donepezil (ARICEPT) 10 mg tablet Take 1 tablet(s) every day by oral route at bedtime potassium chloride (K-TAB) 10 mEq tablet Take 1 tablet by mouth daily with breakfast. amLODIPine (NORVASC) 2.5 mg tablet Take 1 tablet by mouth once daily. rosuvastatin (CRESTOR) 10 mg tablet Take 1 tablet by mouth once daily. aspirin, enteric coated (ASPIRIN, ENTERIC COATED) 81 mg EC tablet Take 1 tablet by mouth once daily. hydroCHLOROthiazide (HYDRODIURIL, ESIDRIX) 25 mg tablet Take 1 tablet by mouth once daily. Multivitamin capsule Take 1 capsule by mouth once daily. No current facility-administered medications for this visit. Review of Systems Objective BP 124/82 Pulse 87 Temp 36.7 C (98.1 F) Resp 18 Wt 52.9 kg (116 lb 11.2 oz) SpO2 95% BMI 24.82 kg/m Last 5 Encounter Wt Readings: Date: Wt: 08/22/2022 52.9 kg (116 lb 11.2 oz) 04/19/2022 54 kg (119 lb) 04/04/2022 52.2 kg (115 lb) 11/18/2020 59.3 kg (130 lb 11.2 oz) 08/17/2020 56.2 kg (124 lb) No waist measurement recorded Estimated body mass index is 24.82 kg/m as calculated from the following: Height as of 04/04/22: 146.1 cm (4' 9.5 ). Weight as of this encounter: 52.9 kg (116 lb 11.2 oz). Last 5 Encounter BP Readings: Date: BP: 08/22/2022 124/82 04/19/2022 163/57 04/04/2022 108/58 11/18/2020 135/49 08/17/2020 100/80 Physical Exam Constitutional: Appearance: Normal appearance. HENT: Head: Normocephalic. Eyes: Conjunctiva/sclera: Conjunctivae normal. Cardiovascular: Rate and Rhythm: Normal rate and regular rhythm. Heart sounds: Normal heart sounds. Pulmonary: Effort: Pulmonary effort is normal. Breath sounds: Normal breath sounds. Skin: General: Skin is warm and dry. Neurological: General: No focal deficit present. Mental Status: She is alert and oriented to person, place, and time. Assessment and Plan Encounter Diagnosis ICD-10-CM 1. Primary hypertension I10 COMP METABOLIC PANEL CBC 2. Impaired glucose metabolism R73.09 COMP METABOLIC PANEL HGB A1C 3. 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 Alzheimer disease (HCC) G30.9 F02.80 5. Hyperlipidemia, unspecified hyperlipidemia type E78.5 LIPID PANEL, NONFASTING 6. Encounter for immunization Z23 INFLUENZA SEASONAL QUADRIVALENT HIGH DOSE AGE 65+ Above issues addressed with patient. Patient involved in shared decision making for management of medical issues. History and medications reviewed. Epic updated as needed Refills and/or prescriptions taken care of and meds adjusted as indicated after reviewed history, exam and labs. Health Maintenance reviewed. Updated record and/or ordered tests as recorded. Encouraged on efforts at healthy diet and regular exercise and adequate sleep. Plans for follow up with neurologist when able to do virtual visit. Anna Shanks MD documented in this encounter [facility] 04-19-2022 Note HNO ID: [id number] Author: Randee Aguirre APRN.BRAKE REPAIR MECHANIC Service: ? Author Type: Nurse Specialist Type: Progress Notes Filed: 04/20/2022 4:47 PM Note Text: Loraine Goff 1940 [address] [facility] [address] April 19, 2022 Time: 3:50 PM Follow up visit [facility] Accompanied by: asia Ramirez DX: Mixed dementia: Probable AD, late onset and VaD [facility] V[facility] DATE: Date: 05/22/19 Provider: Jeb Tatum MD [facility]: Date: 11/18/20 Provider: Randee Aguirre APRN.BRAKE REPAIR MECHANIC [facility] Date: 06/2019 Score: 530 LV FUNCTION: Date: 11/18/20 Increasing difficulty with ADL's. CURRENT TREATMENT: Donepezil (Aricept) 10 mg daily SUBJECTIVE Loraine Goff is a 82 year old year old female seen today for Mixed dementia: Probable AD, late onset and VaD. She was last seen on 11/18/20 and is here today for follow up. Previous evaluation was reviewed, where we agreed to the following plan: 1). Consult PT, AND Exercise encouraged 2). Trial of Melatonin for sleep when away from home 3). Continue same treatment plan. -Follow up in 1 year. Update since last visit: worsening symptoms: memory and additional cues needed. INTERIM REPORT: -The pt's nephew has been away from home on occasion due to health issues, the pt will frequently ask about him and if he will be ok. -She has difficulty putting together sentences, she uses phrases, for example got meat? when she wants a sandwich. It is sometimes hard for her niece to understand her. -She insists on carrying a large bag with her when out. -She has difficulty reading signs or notes. -She is still attending the [facility] program at [place] (at least 3 days per week, sometimes more if needed). -She receives assistance with bathing at the [facility]. -She has lost weight, she has difficulty swallowing some medications. Per niece her current weight I lyndon UBW -She will eat sweets or potato chips if available. -She will go through drawers, rummage through items. -There have been some occasions where she has attempted to wander outside of the home, locks and security measures are in place. -Increase in confusion at night. PATIENT REPORT: -she could not tell me her -states age as over a 89 -she pleasant There is no agitation, aggression, or anxiety noted during the visit. Functional Status: Activities of Daily Living (ADL) Independent Needs Assistance Dependent/cannot do Bathing x Dressing x Grooming x Transferring x Eating X (food is cut into small pieces, sometimes improperly uses utensils) Toileting X (some cues to flush toilet, use toilet paper) Continence Maintained Instrumental Activities of Daily Living (IADL) Independent Needs Assistance Dependent/cannot do Telephone x Shopping x Food preparation x Housekeeping X (she makes her bed) Laundry x Driving or transportation x Bills/finances x Medications x Functional Assessment: Increasing difficulty with ADL's Living Situation AND Setting: Lives with niece and nephew. Is the patient left alone? NO Agencies involved: none; temporarily hired a caregiver to assist when nephew was sick. Safety Assessment: Aware of 911: No Medical Alert System: No; carries an ID card in her purse with family's contact information on it. Driving Concerns:N/A Other interval history: Memory: Poor Mood: some tearfulness and irritability Sleep: described as normal, feels rested upon waking, occasional nightmares where she will moan or yell out. 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 [START ON 05/17/2022] donepezil (ARICEPT) 10 mg tablet Take 1 tablet(s) every day by oral route at bedtime [START ON 05/17/2022] potassium chloride (K-TAB) 10 mEq tablet Take 1 tablet by mouth daily with breakfast. [START ON 05/17/2022] amLODIPine (NORVASC) 2.5 mg tablet Take 1 tablet by mouth once daily. [START ON 05/17/2022] rosuvastatin (CRESTOR) 10 mg tablet Take 1 tablet by mouth once daily. [START ON 05/17/2022] aspirin, enteric coated (ASPIRIN, ENTERIC COATED) 81 mg EC tablet Take 1 tablet by mouth once daily. [START ON 05/17/2022] hydroCHLOROthiazide (HYDRODIURIL, ESIDRIX) 25 mg tablet Take 1 tablet by mouth once daily. Multivitamin capsule Take 1 capsule by mouth once daily. No current facility-administered medications on file trung (more content not included)... [facility] 04-18-2022 Miscellaneous Notes Printed letter, please mail. Closing encounter. VM is full, unable to leave ms, will try again. Josefina García LPN MARCELLA Sanchez called for results. Given information listed below. Christel Agustin LPN VM is full, will have to try again later. Josefina García LPN Called number and Voice mail box was full will need to call back. Labs overall in acceptable range however does need to increase fluid intake. Aim for 64oz/day. A1c improved from previous. Component Latest Ref Rng & Units 04/04/2022 WBC 3.70 - 11.00 k/uL 7.80 RBC 3.90 - 5.20 m/uL 4.51 Hemoglobin 11.5 - 15.5 g/dL 12.8 Hematocrit 36.0 - 46.0 % 40.6 MCV 80.0 - 100.0 fL 90.0 MCH 26.0 - 34.0 pg 28.4 MCHC 30.5 - 36.0 g/dL 31.5 RDW-CV 11.5 - 15.0 % 13.8 Platelet Count 150 - 400 k/uL 279 MPV 9.0 - 12.7 fL 10.5 Neut% % 50.8 Abs Neut (ANC) 1.45 - 7.50 k/uL 3.96 Lymph% % 36.7 Abs Lymph 1.00 - 4.00 k/uL 2.86 Sierra% % 10.6 Abs Sierra <0.87 k/uL 0.83 Eosin% % 1.7 Abs Eosin <0.46 k/uL 0.13 Baso% % 0.1 Abs Baso <0.11 k/uL <0.03 Immature Gran % % 0.1 IMMATURE GRANS (ABS) <0.10 k/uL <0.03 NRBC /100 WBC 0.0 Absolute nRBC <0.01 k/uL <0.01 DTYPE Auto Protein, Total 6.3 - 8.0 g/dL 7.4 Albumin 3.9 - 4.9 g/dL 4.1 Calcium 8.5 - 10.2 mg/dL 10.1 Bilirubin, Total 0.2 - 1.3 mg/dL 0.6 Alkaline Phosphatase 34 - 123 U/L 112 AST 13 - 35 U/L 28 ALT 7 - 38 U/L 16 Glucose 74 - 99 mg/dL 108 (H) BUN 7 - 21 mg/dL 32 (H) Creatinine 0.58 - 0.96 mg/dL 1.26 (H) Sodium 136 - 144 mmol/L 140 Potassium 3.7 - 5.1 mmol/L 4.2 Chloride 97 - 105 mmol/L 102 CO2 22 - 30 mmol/L 27 Anion Gap 9 - 18 mmol/L 11 eGFR >=60 mL/min/1.73m 42 (L) Cholesterol, Total <200 mg/dL 169 Triglyceride <150 mg/dL 82 HDL Cholesterol >39 mg/dL 71 Non HDL Cholesterol <130 mg/dL 98 Fasting Time hrs 12 VLDL Cholesterol <30 mg/dL 16 TC:HDL Ratio <5.10 2.38 LDL Cholesterol <100 mg/dL 82 LDL:HDL Ratio <2.54 1.15 documented in this encounter [facility] 04-04-2022 Note HNO ID: [id number] Author: Jocelyne Brown APRN.BRAKE REPAIR MECHANIC Service: ? Author Type: Nurse Specialist Type: Progress Notes Filed: 04/04/2022 10:27 AM Note Text: Subjective HPI Loraine Goff is a 81 year old female. 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 Previously living / into followed in [place], now residing in [place]. No records available at the time of the visit. Presents with her niece Page. She is currently residing at [facility], medical chemist is Dr. Guerrero. Previous primary physician: Dr. Pina Last seen: Sep 2018 Previous neurologist:Review of outside medications reveals she is taking memantine and donepizil for Alzheimers disease. per Dr. Scout Guillaume [facility] Last seen: Sep 2018 Diet:normal Mobility:active, no restriction Appetite: good Weight: stable Advanced directives:see scanned documents from [place], noted to be full code Reported history of stroke 3 years ago. No residual effects. Currently taking statin, aspirin, lisinopril. Last seen IM 02/2021. Noted to have further cognitive decline interspersed with days where she is back to normal. Has seen neurologist in November 2020. No reported behavioral issues. She was going to [facility]. Presents today with Laura Duarte who helps with HPI. Reports currently living at home with Laura and her who is currently also having health issues. Notes no behavioral concerns. Sleeping well. Maintaining oral intake. Notes difficulty with arising from chair and taking stairs, interested in a lift chair and a stair lift. Recent labs: no Missed neurology appointment 01/2022, needs rescheduled.. HTN: Ms. Goff is without headache, chest pain, palpitations, dyspnea, peripheral edema, orthopnea, fatigue and PND. Last 14 Encounter BP Readings: Date: BP: 04/04/2022 108/58 11/18/2020 135/49 08/17/2020 100/80 03/19/2020 110/60 02/12/2020 110/43 11/24/2019 122/76 08/29/2019 132/70 05/22/2019 122/57 02/27/2019 130/60 Hyperlipidemia. Ms. Goff doing well on current therapy. Her most recent lipid panels are: Total Cholesterol, Nonfasting (mg/dL) Date Value 03/19/2020 167 HDL Cholesterol, Nonfasting (mg/dL) Date Value 03/19/2020 72 LDL Cholesterol, Nonfasting (mg/dL) Date Value 03/19/2020 77 Triglycerides, Nonfasting (mg/dL) Date Value 03/19/2020 90 Review of Systems Constitutional: Negative. Respiratory: Negative. Cardiovascular: Negative. Objective BP 108/58 Pulse 60 Resp 16 Ht 146.1 cm (4' 9.5 ) Wt 52.2 kg (115 lb) BMI 24.45 kg/m? Physical Exam Vitals and nursing note reviewed. Constitutional: General: She is not in acute distress. Appearance: She is well-developed. She is not diaphoretic. HENT: Head: Normocephalic and atraumatic. Neck: Thyroid: No thyromegaly. Vascular: No JVD. Trachea: No tracheal deviation. Cardiovascular: Rate and Rhythm: Normal rate and regular rhythm. Heart sounds: Normal heart sounds. Pulmonary: Effort: Pulmonary effort is normal. Breath sounds: Normal breath sounds. Abdominal: General: Bowel sounds are normal. Palpations: Abdomen is soft. Lymphadenopathy: Cervical: No cervical adenopathy. Skin: General: Skin is warm and dry. Neurological: Mental Status: She is alert. ALLERGIES No Known Allergies Current Outpatient Medications Medication Sig Multivitamin capsule Take 1 capsule by mouth once daily. lisinopril (ZESTRIL, PRINIVIL) 10 mg tablet Take 1 tablet by mouth once daily. [START ON 05/17/2022] donepezil (ARICEPT) 10 mg tablet Take 1 tablet(s) every day by oral route at bedtime [START ON 05/17/2022] potassium chloride (K-TAB) 10 mEq tablet Take 1 tablet by mouth daily with breakfast. [START ON 05/17/2022] amLODIPine (NORVASC) 2.5 mg tablet Take 1 tablet by mouth once daily. [START ON 05/17/2022] rosuvastatin (CRESTOR) 10 mg tablet Take 1 tablet by mouth once daily. [START ON 05/17/2022] aspirin, enteric coated (ASPIRIN, ENTERIC COATED) 81 mg EC tablet Take 1 tablet by mouth once daily. [START ON 05/17/2022] hydroCHLOROthiazide (HYDRODIURIL, ESIDRIX) 25 mg tablet Take 1 tablet by mouth once daily. No current facility-administered medications for this visit. 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 She has never used smokeless tobacco. She reports that she does not (more content not included)... [facility] 04-04-2022 Instructions Jocelyne Brown APRN.CNS - 04/04/2022 10:00 AM EDT Check to see if your insurance covers Tdap shingles vaccine and what location to get the vaccine -usually best covered at your local pharmacy where you get prescriptions filled. [facility] if any paperwork needed for chair lift or stair lift Let us know if needing any additional assistance documented in this encounter [facility] 04-04-2022 History of Present illness Narrative Subjective HPI Loraine Goff is a 81 year old female. 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 Previously living / into followed in [place], now residing in [place]. No records available at the time of the visit. Presents with her niece Page. She is currently residing at [facility], medical chemist is Dr. Guerrero. Previous primary physician: Dr. Pina Last seen: Sep 2018 Previous neurologist:Review of outside medications reveals she is taking memantine and donepizil for Alzheimers disease. per Dr. Scout Guillaume [facility] Last seen: Sep 2018 Diet:normal Mobility:active, no restriction Appetite: good Weight: stable Advanced directives:see scanned documents from Michael, noted to be full code Reported history of stroke 3 years ago. No residual effects. Currently taking statin, aspirin, lisinopril. Last seen IM 02/2021. Noted to have further cognitive decline interspersed with days where she is back to normal. Has seen neurologist in November 2020. No reported behavioral issues. She was going to [facility]. Presents today with Laura Duarte who helps with HPI. Reports currently living at home with Laura and her who is currently also having health issues. Notes no behavioral concerns. Sleeping well. Maintaining oral intake. Notes difficulty with arising from chair and taking stairs, interested in a lift chair and a stair lift. Recent labs: no Missed neurology appointment 01/2022, needs rescheduled.. HTN: Ms. Goff is without headache, chest pain, palpitations, dyspnea, peripheral edema, orthopnea, fatigue and PND. Last 14 Encounter BP Readings: Date: BP: 04/04/2022 108/58 11/18/2020 135/49 08/17/2020 100/80 03/19/2020 110/60 02/12/2020 110/43 11/24/2019 122/76 08/29/2019 132/70 05/22/2019 122/57 02/27/2019 130/60 Hyperlipidemia. Ms. Goff doing well on current therapy. Her most recent lipid panels are: Total Cholesterol, Nonfasting (mg/dL) Date Value 03/19/2020 167 HDL Cholesterol, Nonfasting (mg/dL) Date Value 03/19/2020 72 LDL Cholesterol, Nonfasting (mg/dL) Date Value 03/19/2020 77 Triglycerides, Nonfasting (mg/dL) Date Value 03/19/2020 90 Review of Systems Constitutional: Negative. Respiratory: Negative. Cardiovascular: Negative. Objective BP 108/58 Pulse 60 Resp 16 Ht 146.1 cm (4' 9.5 ) Wt 52.2 kg (115 lb) BMI 24.45 kg/m Physical Exam Vitals and nursing note reviewed. Constitutional: General: She is not in acute distress. Appearance: She is well-developed. She is not diaphoretic. HENT: Head: Normocephalic and atraumatic. Neck: Thyroid: No thyromegaly. Vascular: No JVD. Trachea: No tracheal deviation. Cardiovascular: Rate and Rhythm: Normal rate and regular rhythm. Heart sounds: Normal heart sounds. Pulmonary: Effort: Pulmonary effort is normal. Breath sounds: Normal breath sounds. Abdominal: General: Bowel sounds are normal. Palpations: Abdomen is soft. Lymphadenopathy: Cervical: No cervical adenopathy. Skin: General: Skin is warm and dry. Neurological: Mental Status: She is alert. ALLERGIES No Known Allergies Current Outpatient Medications Medication Sig Multivitamin capsule Take 1 capsule by mouth once daily. lisinopril (ZESTRIL, PRINIVIL) 10 mg tablet Take 1 tablet by mouth once daily. [START ON 05/17/2022] donepezil (ARICEPT) 10 mg tablet Take 1 tablet(s) every day by oral route at bedtime [START ON 05/17/2022] potassium chloride (K-TAB) 10 mEq tablet Take 1 tablet by mouth daily with breakfast. [START ON 05/17/2022] amLODIPine (NORVASC) 2.5 mg tablet Take 1 tablet by mouth once daily. [START ON 05/17/2022] rosuvastatin (CRESTOR) 10 mg tablet Take 1 tablet by mouth once daily. [START ON 05/17/2022] aspirin, enteric coated (ASPIRIN, ENTERIC COATED) 81 mg EC tablet Take 1 tablet by mouth once daily. [START ON 05/17/2022] hydroCHLOROthiazide (HYDRODIURIL, ESIDRIX) 25 mg tablet Take 1 tablet by mouth once daily. No current facility-administered medications for this visit. 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 She has never used smokeless tobacco. She reports that she does not drink alcohol and does not use drugs. Component Latest Ref Rng & Units 03/19/2020 08/17/2020 11/27/2020 Protein, Total 6.3 - 8.0 g/dL 6.4 Albumin 3.9 - 4.9 g/dL 4.0 Calcium 8.5 - 10.2 mg/dL 9.4 9.8 9.7 Bilirubin, Total 0.2 - 1.3 mg/dL 0.4 Alkaline Phosphatase 34 - 123 U/L 107 AST 13 - 35 U/L 28 Glucose 74 - 99 mg/dL 74 104 (H) 94 BUN 7 - 21 mg/dL 21 26 (H) 24 (H) Creatinine 0.58 - 0.96 mg/dL 1.00 (H) 0.99 (H) 0.92 Sodium 136 - 144 mmol/L 141 140 143 Potassium 3.7 - 5.1 mmol/L 3.8 3.5 (L) 4.2 Chloride 97 - 105 mmol/L 104 99 105 CO2 22 - 30 mmol/L 28 30 26 Anion Gap 9 - 18 mmol/L 9 11 12 ALT 7 - 38 U/L 15 eGFR- >60 >60 >60 eGFR-All Other Races . 53 54 58 WBC 3.70 - 11.00 k/uL 6.73 RBC 3.90 - 5.20 m/uL 4.03 Hemoglobin 11.5 - 15.5 g/dL 11.7 Hematocrit 36.0 - 46.0 % 38.3 MCV 80.0 - 100.0 fL 95.0 MCH 26.0 - 34.0 pG 29.0 MCHC 30.5 - 36.0 g/dL 30.5 RDW-CV 11.5 - 15.0 % 12.9 Platelet Count 150 - 400 k/uL 287 MPV 9.0 - 12.7 fL 11.1 Absolute nRBC <0.01 k/uL <0.01 Total Cholesterol, Nonfasting <200 mg/dL 167 Triglycerides, Nonfasting <150 mg/dL 90 HDL Cholesterol, Nonfasting >39 mg/dL 72 LDL Cholesterol, Nonfasting <100 mg/dL 77 Non HDL Cholesterol, Nonfasting <130 mg/dL 95 VLDL Cholesterol, Nonfasting <30 mg/dL 18 Total Chol/HDL Ratio, Nonfasting <5.10 mg/dL 2.32 LDL/HDL Ratio, Nonfasting <2.54 mg/dL 1.07 Hemoglobin A1C 4.3 - 5.6 % 6.1 (H) Estimated Average Glucose mg/dL 128 TSH 0.270 - 4.200 uU/mL 2.970 Assessment and Plan 1. Encounter for immunization - ICD9: V03.89, ICD10: Z23 - PFIZER-BIONTECH COVID-19 VACCINE, AGE 12+ YR (MARINELLI TOP) 2. Alzheimer's dementia without behavioral disturbance, unspecified timing of dementia onset (HCC) - ICD9: 331.0, 294.10, ICD10: G30.9, F02.80k(primary diagnosis) - DONEPEZIL 10 MG TABLET 3. 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 Need for shingles vaccine - ICD9: V04.89, ICD10: Z23 5. Cerebral infarction due to occlusion or stenosis of precerebral artery (HCC) - ICD9: 433.91, ICD10: I63.20 - ASPIRIN 81 MG TABLET,DELAYED RELEASE 6. Alzheimer disease (HCC) - ICD9: 331.0, ICD10: G30.9, F02.80 7. Primary hypertension - ICD9: 401.9, ICD10: I10 - COMP METABOLIC PANEL - CBC + DIFF 8. Hyperlipidemia, unspecified hyperlipidemia type - ICD9: 272.4, ICD10: E78.5 - COMP METABOLIC PANEL - LIPID PANEL BASIC - ROSUVASTATIN 10 MG TABLET 9. Impaired glucose metabolism - ICD9: 790.29, ICD10: R73.09 - HGB A1C 10. Abnormality of gait due to impairment of balance - ICD9: 781.2, ICD10: R26.89 - SEAT LIFT MECHANISM COMBL 11. Hypertension, unspecified type - ICD9: 401.9, ICD10: I10 - LISINOPRIL 10 MG TABLET - AMLODIPINE 2.5 MG TABLET - HYDROCHLOROTHIAZIDE 25 MG TABLET 12. CKD - N18.31 stable; labs today Stable with current treatments. Continue unchanged for now, continue to monitor. Interested in assistive devices, chairlift and stair lift due to difficulty arising from chair and taking stairs. Will let us know if needing any additional help at home. Defers immunizations for now, prefers to complete at pharmacy at the end of the week to avoid not being able to observe when going to [place] during the week. Recommend lab work today. Reschedule neurology appointment. 6 to 12-month follow-up with MD Jocelyne De La Garza APRN.[employer]CH[employer]IC Medical Decision Making: Problems: Moderate: 2+ stable chronic illnesses Data: Unique test(s) ordered: 3+ Risk: Moderate: Drug management Medical Decision Making Level: 4 - Moderate documented in this encounter [facility] 02-03-2022 Miscellaneous Notes Orders faxed to shona walker/rizwan Will write order for what was requested verbatim, but not sure if she means lift chair (lift mechanism for something like a recliner chair). Not sure what a Chair Wall lift is but sounds like a stair lift chair. And is Step in Shower like a shower bench? Printed to fax. Note that has been to PT Niece Ashley calling asking if Dr. Shanks would be willing to write an order for the following: step in shower Chair Wall lift to go up stairs Chair lift If so patient would like orders faxed to Justin Walker. Patient scheduled to see Dr. Shanks on 02/17/22. documented in this encounter [facility] 01-10-2022 Miscellaneous Notes Outgoing call to Ashley Mejía) at phone # [phone] to inquire about the virtual scheduled for today at 5:45 PM. There was no answer and no way to leave a VM, as the mailbox was full. Randee Aguirre APRN.CNS documented in this encounter [facility] 12-30-2021 Miscellaneous Notes Patient's niece called and asked if the patient had missed an appt as she hadn't been seen in some time. I told the niece Ashley that it has been over a year and that it was recommended that the patient be seen in in a year, but had not missed any appt. I asked if she wanted to schedule and she told me that they have many health issues going on in the family, which may not make it feasible to come up from [place] for an appt. Ashley's is being newly treated for renal ca. I told Ashley that we couls schedule a virtual, she agreed, and call was transferred to Kenton Denson, Coordinator. Lorraine Landrum RN documented in this encounter [facility] 11-16-2021 Miscellaneous Notes Has February appt Missed August appointment with Trupti The following approved medication requests have been transmitted electronically. Signed Prescriptions Disp Refills lisinopril (ZESTRIL, PRINIVIL) 10 mg tablet 90 tablet 1 Sig: Take 1 tablet by mouth once daily. BETO: No Authorizing Provider: ANNA SHANKS donepezil (ARICEPT) 10 mg tablet 90 tablet 1 Sig: Take 1 tablet(s) every day by oral route at bedtime BETO: No Authorizing Provider: ANNA SHANKS potassium chloride (K-TAB) 10 mEq tablet 90 tablet 1 Sig: Take 1 tablet by mouth daily with breakfast. BETO: No Authorizing Provider: ANNA SHANKS amLODIPine (NORVASC) 2.5 mg tablet 90 tablet 1 Sig: Take 1 tablet by mouth once daily. BEOT: No Authorizing Provider: ANNA SHANKS rosuvastatin (CRESTOR) 10 mg tablet 90 tablet 1 Sig: Take 1 tablet by mouth once daily. BETO: No Authorizing Provider: ANNA SHANKS aspirin, enteric coated (ASPIRIN, ENTERIC COATED) 81 mg EC tablet 90 tablet 1 Sig: Take 1 tablet by mouth once daily. BETO: No Authorizing Provider: ANNA SHANKS hydroCHLOROthiazide (HYDRODIURIL, ESIDRIX) 25 mg tablet 90 tablet 1 Sig: Take 1 tablet by mouth once daily. BETO: No Authorizing Provider: ANNA SHANKS Multivitamin capsule 90 capsule 1 Sig: Take 1 capsule by mouth once daily. BETO: No Authorizing Provider: TALAMPANNA LENNON MD Patient has been identified by name and date of : Yes Last office visit in this department: Visit date not found RX INSTRUCTIONS: Patient aware RX will be sent to pharmacy. No need to notify patient. Patient phones requesting refills as follows: Pending Prescriptions Disp Refills LISINOPRIL 10 MG TABLET 90 tablet 3 Sig: Take 1 tablet by mouth once daily. BETO: No DONEPEZIL 10 MG TABLET 90 tablet 3 Sig: Take 1 tablet(s) every day by oral route at bedtime BETO: No POTASSIUM CHLORIDE ER 10 MEQ TABLET,EXTENDED RELEASE 90 tablet 3 Sig: Take 1 tablet by mouth daily with breakfast. BETO: No AMLODIPINE 2.5 MG TABLET 90 tablet 3 Sig: Take 1 tablet by mouth once daily. BETO: No ROSUVASTATIN 10 MG TABLET 90 tablet 3 Sig: Take 1 tablet by mouth once daily. BETO: No ASPIRIN 81 MG TABLET,DELAYED RELEASE 30 tablet 5 Sig: Take 1 tablet by mouth once daily. BETO: No HYDROCHLOROTHIAZIDE 25 MG TABLET 90 tablet 3 Sig: Take 1 tablet by mouth once daily. BETO: No MULTIVITAMIN CAPSULE 30 capsule 5 Sig: Take 1 capsule by mouth once daily. BETO: No Please review and advise. 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) Balance problem Other symptoms involving nervous and musculoskeletal systems Abnormality of gait and mobility Abnormality of gait [facility] Diagnosis Encounter for immunization- Primary Need for other specified prophylactic vaccination against single bacterial disease Alzheimer's dementia without behavioral disturbance, unspecified timing of dementia onset (HCC) 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) Need for shingles vaccine Need for prophylactic vaccination and inoculation against other viral diseases Cerebral infarction due to occlusion or stenosis of precerebral artery (HCC) Primary hypertension Unspecified essential hypertension Hyperlipidemia, unspecified hyperlipidemia type Impaired glucose metabolism Impaired glucose tolerance test Abnormality of gait due to impairment of balance Hypertension, unspecified type Stage 3a chronic kidney disease (HCC) [facility] Diagnosis Primary hypertension- Primary Unspecified essential hypertension Impaired glucose metabolism Impaired glucose tolerance test 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) Alzheimer disease (HCC) Alzheimer's disease Hyperlipidemia, unspecified hyperlipidemia type Encounter for immunization Need for other specified prophylactic vaccination against single bacterial disease documented in this encounter [facility] note* Diagnosis Screening-pulmonary TB- Primary Screening examination for pulmonary tuberculosis documented in this encounter [facility] note* Diagnosis Alzheimer disease (HCC)- Primary Alzheimer's disease 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) Cerebral infarction due to occlusion or stenosis of precerebral artery (HCC) Screening for tuberculosis Screening examination for pulmonary tuberculosis Primary hypertension Unspecified essential hypertension Hyperlipidemia, unspecified hyperlipidemia type Impaired glucose metabolism Impaired glucose tolerance test Hypertension, unspecified type Stage 3a chronic kidney disease (HCC) documented in this encounter [facility] Summary Purpose Family History No Family History Records FoundNo Family History Records Found Advance Directives No Advanced Directives Records FoundDocuments on File Type Date Recorded Patient Certified Medical Transcriptionist Expl anation Advance Directive(s) 02/28/2019 10:54 AM Additional Source Comments INFORMATION SOURCE (unrecogn ized section and content) DATE CREATED AUTHOR AUTHOR'S ORGANIZ ATION 11/29/2022 [facility] Source Comments (unrecognize d section and content) In the event this informatio n is protected by the Federal Confidentiality of Alcohol and Drug Abuse Patient Records regulations: The Federal rules restrict any use of the information to criminally investigate or prosecute any alcohol or drug abuse patient.[facility] the event this information is protected by the Federal Confidentiality of Alcohol and Drug Abuse Patient Records regulations: The Federal rules restrict any use of the information to criminally investigate or prosecute any alcohol or drug abuse patient.[facility] the event this information is protected by the Federal Confidentiality of Alcohol and Drug Abuse Patient Records regulations: The Federal rules restrict any use of the information to criminally investigate or prosecute any alcohol or drug abuse patient.[facility] the event this information is protected by the Federal Confidentiality of Alcohol and Drug Abuse Patient Records regulations: The Federal rules restrict any use of the information to criminally investigate or prosecute any alcohol or drug abuse patient.[facility] the event this information is protected by the Federal Confidentiality of Alcohol and Drug Abuse Patient Records regulations: The Federal rules restrict any use of the information to criminally investigate or prosecute any alcohol or drug abuse patient.[facility] the event this information is protected by the Federal Confidentiality of Alcohol and Drug Abuse Patient Records regulations: The Federal rules restrict any use of the information to criminally investigate or prosecute any alcohol or drug abuse patient.[facility] the event this information is protected by the Federal Confidentiality of Alcohol and Drug Abuse Patient Records regulations: The Federal rules restrict any use of the information to criminally investigate or prosecute any alcohol or drug abuse patient.[facility] Hospital[facility] the event this information is protected by the Federal Confidentiality of Alcohol and Drug Abuse Patient Records regulations: The Federal rules restrict any use of the information to criminally investigate or prosecute any alcohol or drug abuse patient.[facility] Hospital[facility] the event this information is protected by the Federal Confidentiality of Alcohol and Drug Abuse Patient Records regulations: The Federal rules restrict any use of the information to criminally investigate or prosecute any alcohol or drug abuse patient.[facility] Hospital[facility] the event this information is protected by the Federal Confidentiality of Alcohol and Drug Abuse Patient Records regulations: The Federal rules restrict any use of the information to criminally investigate or prosecute any alcohol or drug abuse patient.[facility] Hospital[facility] the event this information is protected by the Federal Confidentiality of Alcohol and Drug Abuse Patient Records regulations: The Federal rules restrict any use of the information to criminally investigate or prosecute any alcohol or drug abuse patient.[facility] Hospital[facility] the event this information is protected by the Federal Confidentiality of Alcohol and Drug Abuse Patient Records regulations: The Federal rules restrict any use of the information to criminally investigate or prosecute any alcohol or drug abuse patient.[facility] Hospital[facility] the event this information is protected by the Federal Confidentiality of Alcohol and Drug Abuse Patient Records regulations: The Federal rules restrict any use of the information to criminally investigate or prosecute any alcohol or drug abuse patient.[facility] Reason for Visit (unrecogniz ed section and content) Reason Comments Appointment Reason Comments Internist Medical Doctor Md - Other [facility] virtual vis it pre-chart Reason Comments Missed Appointment Reason Comments Patient Question Reason Comments Physical Reason Comments Results Reason Comments Appointment LVM on MARCELLA Ramirez phone re: rescheduling missed appt with Emre Efrain on 07/25. Pt/Ashley may contact [facility] scheduling line at #opt #1 Reason Comments F/U 6 months Reason Comments Orders Reason Comments Follow Up Reason Onset Date Comments ACM WADE RN 11/28/2022 Medication Ad herence review per request of payer Care Teams (unrecognized sec tion and content) [employer] Relationship Specialty Start Date End Date Anna Shanks MD [address] [facility] [place] [address] PCP - General Internal Medicine 05/20/19 [employer] Relationship Specialty Start Date End Date Anna Shanks MD [facility] [place] [address] PCP - General Internal Medicine 05/20/19 [employer] Relationship Specialty Start Date End Date Anna Shanks MD [address] [facility] [place] [address] PCP - General Internal Medicine 05/20/19 [employer] Crew[employer] Relationship Specialty Start Date End Date Anna Shanks MD [facility]0 [facility] [place] [address] PCP - General Internal Medicine 05/20/19 [employer] Crew[employer] Relationship Specialty Start Date End Date Anna Shanks MD [address] [facility] [place] [address] PCP - General Internal Medicine 05/20/19 [employer] Crew[employer] Relationship Specialty Start Date End Date Anna Shanks MD [address] [place] [address], [place] [address] PCP - General Internal Medicine 05/20/19 [employer] Crew[employer] Relationship Specialty Start Date End Date Anna Shanks MD [address] [facility] [place] [address] PCP - General Internal Medicine 05/20/19 [employer] Crew[employer] Relationship Specialty Start Date End Date Anna Shanks MD [address] [facility] [place] [address] PCP - General Internal Medicine 05/20/19 [employer] Relationship Specialty [place] [address] [place] [address], [place] [address] PCP - General Internal Medicine 05/20/19 [employer] Crew[employer] Relationship Specialty Start Date End Date Anna Shanks MD [address] [facility] [place] [address] PCP - General Internal Medicine 05/20/19 [employer] Crew[employer] Relationship Specialty Start Date End Date Anna Sahnks MD [address] [place] [address], [place] [address] PCP - General Internal Medicine 05/20/19 [employer] Crew[employer] Relationship Specialty [place] [address] [place] [address], [place] [address] PCP - General Internal Medicine 05/20/19 FOR RECORDS PERTAINING TO PATIENTS WHO ARE OR HAVE BEEN ENROLLED IN A CHEMICAL DEPENDENCY/SUBSTANCEABUSE PROGRAM, SOME INFORMATION MAY BE OMITTED. This clinical summary was aggregated from multiple sources. Caution should be exercised in using it in the provision of clinical care. This summary normalizes information from multiple sources, and as a consequence, information in this document may materially change the coding, format and clinical context of patient data. In addition, data may be omitted in some cases. CLINICAL DECISIONS SHOULD BE BASED ON THE PRIMARY CLINICAL RECORDS. [employer] [facility]. provides no warranty or guarantee of the accuracy or completeness of information in this document.
--- NOTE | 2023-08-04 14:35 | ED.RN ---
VALE CALLED ETA 3 HOURS (1800)
== END 2023-08-04 15:58 | disposition home or self-care (01) ==
PROVIDERS: Emergency Provider Emergency Medicine; PCP Family Medicine; Visit Provider Emergency Medicine
DX: S09.90XA Unspecified injury of head, initial encounter (principal); F02.80 Dementia in other diseases classified elsewhere, unspecified severity, without behavioral disturbance, psychotic disturbance, mood disturbance, and anxiety; G30.9 Alzheimer's disease, unspecified; N18.31 Chronic kidney disease, stage 3a; I12.9 Hypertensive chronic kidney disease with stage 1 through stage 4 chronic kidney disease, or unspecified chronic kidney disease; Z79.82 Long term (current) use of aspirin; Z79.899 Other long term (current) drug therapy; W19.XXXA Unspecified fall, initial encounter
CPT/HCPCS: 70450; 99282

== ENCOUNTER → 2023-08-20 | Outpatient (REF) | payer MEDICARE, SELFPAY ==
--- OUTSIDE RECORDS SUMMARY | 2023-08-20 04:18 | XMS RPT_ITS | CCD ---
Author Name Unknown Address [address] [place] [address] Organization [facility] Care Team Providers Care Supervisor Mixing Name Role Phone Anna Shanks MD Primary Care Provider ANNA SHANKS Primary Care Unavailable RANDEE AGUIRRE Attending Unavailable BORWN, JOCELYNE Referring Unavailable TALAMPSAJI, ANNA Ruth Primary [...] 13:28-040 Body weight 53.52 kg Jocelyne Brown APRN.HOME CARE COMPANION Work Phone: [facility] 11-03-2022 13:28-040 Diastolic blood pressure 56 mm[Hg] Jocelyne Brown APRN.HOME CARE COMPANION Work Phone: [facility] 11-03-2022 13:28-0400 Heart rate 60 /min Jocelyne Brown INJECTION OPERATOR.HOME CARE COMPANION Work Phone: [facility] 11-03-2022 13:28-0400 Respiratory rate 14 /min Jocelyne Brown INJECTION OPERATOR.HOME CARE COMPANION Work Phone: [facility] 11-03-2022 13:28-0400 SaO2% (BldA) [Mass fraction] 98 % Jocelyne Brown INJECTION OPERATOR.HOME CARE COMPANION Work Phone: [facility] 11-03-2022 13:28-0400 Systolic blood pressure 108 mm[Hg] Jocelyne Brown INJECTION OPERATOR.HOME CARE COMPANION Work Phone: [facility] 08-22-2022 18:36-0500 Body temperature 98.1 [degF] Anna Shanks MD Work Phone: [facility] 08-22-2022 18:36-0500 Body weight 52.94 kg Anna Shanks MD Work Phone: [facility] 08-22-2022 18:36-0500 Diastolic blood pressure 82 mm[Hg] Anna Shanks MD Work Phone: [facility] 08-22-2022 18:36-0500 Heart rate 87 /min Anna Shanks MD Work Phone: [facility] 08-22-2022 18:36-0500 Respiratory rate 18 /min Anna Shanks MD Work Phone: [facility] 08-22-2022 18:36-0500 SaO2% (BldA) [Mass fraction] 95 % Anna Shanks MD Work Phone: [facility] 08-22-2022 18:36-0500 Systolic blood pressure 124 mm[Hg] Anna Shanks MD Work Phone: [facility] 04-04-2022 09:44-0400 Body height 146.1 cm Jocelyne Brown INJECTION OPERATOR.HOME CARE COMPANION Work Phone: [facility] 04-04-2022 09:44-0400 Body weight 52.16 kg Jocelyne Brown INJECTION OPERATOR.HOME CARE COMPANION Work Phone: [facility] 04-04-2022 09:44-0400 Diastolic blood pressure 58 mm[Hg] Jocelyne Brown INJECTION OPERATOR.HOME CARE COMPANION Work Phone: [facility] 04-04-2022 09:44-0400 Heart rate 60 /min Jcoelyne Costellos INJECTION OPERATOR.HOME CARE COMPANION Work Phone: [facility] 04-04-2022 09:44-0400 Respiratory rate 16 /min Jocelyne Costellos INJECTION OPERATOR.HOME CARE COMPANION Work Phone: [facility] 04-04-2022 09:44-0400 Systolic blood pressure 108 mm[Hg] Jocelyne Costellos INJECTION OPERATOR.HOME CARE COMPANION Work Phone: [facility] Encounters Encounter Date Encounter Type Care Provider Facility Start: 11-28-2022 ambulatory Patito Parra RN [facility] Procedures Date Procedure Procedure Detail Performing Clinician Start: 09-18-2022 Follow-up visit Follow Up WESTON AGUIRRE Start: 08-22-2022 INFLUENZA SEASONAL QUADRIVALENT HIGH DOSE AGE 65+ Anna Shanks MD Work Phone: Plan of Treatment Date Care Activity Detail Author Start: 11-03-2025 DIABETES SCREEN DIABETES SCREEN [facility] Start: 04-04-2025 DIABETES SCREEN DIABETES SCREEN [facility] Start: 11-28-2023 DIABETES SCREEN DIABETES SCREEN [facility] Start: 08-22-2023 SHINGRIX VACCINE (1 of 2) SHINGRIX V ACCINE (1 of 2) [facility] Immunizations Immunization Date Immunization Notes Care Provider Rohit carlisle 08-22-2022 influenza, high-dose , quadrivalent vaccine (FLUZONE HIGH DOSE QUADRIVALENT) Anna Shanks MD Work Phone: [facility] 10-10-2021 COVID-19 vaccine, ag e 12+ yr (PFIZER-BIONTECH - MARINELLI TOP) Whitney Espino [facility] Work Phone: 12-17-2020 COVID-19 vaccine, ag e 12+ yr (PFIZER-BIONTECH - PURPLE TOP) Whitney Espino [facility] Work Phone: 11-26-2020 COVID-19 vaccine, ag e 12+ yr (PFIZER-BIONTConnectAndSell - PURPLE TOP) Whitney [facility] 08-17-2020 influenza, high-dose , quadrivalent vaccine (FLUZONE HIGH DOSE QUADRIVALENT) Whitney [facility] 08-29-2019 pneumococcal polysaccharide vaccine, 23 valent [facility] 08-22-2019 influenza, high dose seasonal, preservative-free [facility] 04-25-2018 influenza, high dose seasonal, preservative-free [facility] 04-20-2017 influenza, high dose seasonal, preservative-free [facility] 09-07-2015 pneumococcal conjuga te vaccine, 13 valent [facility] Payers Date Payer Category Payer Medicare UHC AAR MEDICAR E UHC AARP MEDICARE HMO [id number] 2019-Present [phone] [address] [address] [place] [address] [facility] [id number] 2019 Medicare UHC AAR MEDICAR E UHC AARP MEDICARE HMO [id number] 2019-Present [phone] [address] [address] [place] [address] [facility] [id number] 2019 Medicare [id number] Social History Date Type Detail Facility Start: 02-27-2019 End: 04-04-2022 Tobacco smoking status NHIS Never smoked tobacco [facility] Work Phone: Start: 02-27-2019 End: 04-04-2022 Tobacco use and exposure Smokeless tobacco non-user [facility] Work Phone: Start: 02-23-2021 End: 11-03-2022 Alcohol intake Lifetime non-drinker (finding) [facility] Start: 02-14-2021 History SDOH Alcohol Frequency [address] [facility] Start: 02-14-2021 History SDOH Alcohol Std Drinks [address] [facility] Start: 05-22-2019 History SDOH Alcohol Comment none [facility] Start: 02-14-2021 History SDOH Social Connections Phone [address] [facility] Start: 02-14-2021 History SDOH Social Connections Get Together [address] [facility] Start: 02-14-2021 History SDOH Social Connections Living [address] [facility] Start: 02-14-2021 Education [address] [facility] Start: 1940 Sex Assigned At Not on file C [facility] Start: 03-25-2022 End: 04-04-2022 Exposure to SARS-CoV-2 (event) Not sure [facility] Work Phone: Clinical Notes 11-16-2021 to 11-28-2022 Patito Parra RN - 11/28/2022 5:52 AM Aisha Brown APRN.HOME CARE COMPANION - 11/03/2022 1:20 PM EDTTelephone Encounter - Josefina García LPN - 10/31/2022 11:17 AM EDTPatient Instructions Note Date & Type Note Facility 11-28-2022 Note Patient Outreach (NE TNAV) LORAINE GOFF ([id number]) 1940 F Date Time Provider Department 11/28/22 PATITO PARRA During your visit today, we recorded the following information about you: Patito Parra RN 11/28/2022 5:55 AM Signed ACM WADE RN Action/FYI: Medication Adherence review completed per request of [facility]. NO PROVIDER ACTION REQUIRED Please see requests in the Summary/Findings section below Patient identified by name and date of . Patient Attributed To: QAE Payer: [facility] Reason for review or outreach: Medication Adherence Medication Adherence Review Details: Cholesterol and Hypertension Summary / Findings: Patient is now living at [facility] where they take care of her meds Action Taken: Data submitted to Payer Other Contact made with patient: No, Chart review only. Signature: Patito Parra RN Allergies As of Date: 11/28/2022 (No Known Allergies) Date Reviewed: 11/03/2022 Reviewed by: Jennifer Trimble LPN - Fully Assessed Reason for Visit: ACM WADE RN [[id number]] Cmt: Medication Adherence review per request of [...] Encounter Status:Closed by PATITO PARRA on 11/28/22 [facility] 11-28-2022 Note HNO ID: [id number] Author: Patito Parra RN Service: ? Author Type: Registered Nurse Type: Progress Notes Filed: 11/28/2022 5:55 AM Note Text: ACM WADE RN Action/FYI: Medication Adherence review completed per request of [facility]. NO PROVIDER ACTION REQUIRED Please see requests in the Summary/Findings section below Patient identified by name and date of . Patient Attributed To: CANDELARIA Payer: [employer] Reason for review or outreach: Medication Adherence Medication Adherence Review Details: Cholesterol and Hypertension Summary / Findings: Patient is now living at [facility] where they take care of her meds Action Taken: Data submitted to Pay Other Contact made with patient: No, Chart review only. Signature: Patito Parra RN [facility] 11-28-2022 History of Present illness Narrative ACM WADE RN Action/FYI: Medication Adherence review completed per request of [facility]. NO PROVIDER ACTION REQUIRED Please see requests in the Summary/Findings section below Patient identified by name and date of . Patient Attributed To: QAE Payer: [employer] Reason for review or outreach: Medication Adherence Medication Adherence Review Details: Cholesterol and Hypertension Summary / Findings: Patient is now living at [facility] where they take care of her meds Action Taken: Data submitted to Pay Other Contact made with patient: No, Chart review only. Signature: Patito Parra RN documented in this encounter [facility] 11-03-2022 Note HNO ID: [id number] Author: Jocelyne Brown APRN.HOME CARE COMPANION Service: ? Author Type: Nurse Specialist Type: [...] need of exam prior to admission to [facility] SNF. Presents today with family member [...] Use: Never u (more content not included)... [facility] 11-03-2022 History of Present illness Narrative Subjective [...] need of exam prior to admission to [facility] / SNF. Presents today with family member [...] Abs Lymph 1.00 - 4.00 k/uL 2.86 Caswell% % 10.6 Abs Caswell <0.87 k/uL 0.83 Eosin% % 1.7 Abs [...] continue to monitor. Followed by neurology provider [facility] - follow up March 2023 advised, [...] work today, will send when complete to [facility] Schedule neurology appointment. 6 month follow-up with Anna Shanks MD Fax form to [phone] per request. Jocelyne Brown APRN.HOME CARE COMPANION Medical Decision Making: Problems: Moderate: 2+ stable chronic illnesses Data: Unique test(s) ordered: 3+ Risk: Low: Low risk from testing/treatment Medical Decision Making Level: 4 - Moderate documented in this encounter [facility] 10-31-2022 Miscellaneous Notes Faxed last office visit, demographic sheet, Immunization Record, Labs to: Attn: Charly, . Josefina García LPN Asia calling stating patient will be moving to [facility]. Admission form is needing updated information. Please fax the most recent physical notes, last labs, office notes and any test results from the previous year. Attn: Charly documented in this encounter [facility] 10-17-2022 Miscellaneous Notes Ashley aware of same. Order placed, please return call and let them know, thanks! Asia Ramirez calling asking for a TB Gold test to be ordered. Please advise and call Ashley. documented in this encounter [facility] 09-18-2022 Note HNO ID: [id number] Author: Randee Aguirre APRN.HOME CARE COMPANION Service: ? Author Type: Nurse Specialist Type: Progress Notes Filed: 09/18/2022 3:09 PM Note Text: Loraine Goff 1940 [address] [facility] [address] September 16, 2022 Time: 10:53 AM Center [...] as the day goes on -she attends [facility] in [place] 3 days per week- -they feel she [...] Never Social History reviewed by Randee Aguirre APRN.HOME CARE COMPANION OBJECTIVE Current Outpatient Medications on File Prior [...] preparing to s (more content not included)... [facility] 08-22-2022 Note HNO ID: [id number] Author: Anna Shanks MD Service: ? Author Type: Physician Type: Progress Notes Filed: 09/19/2022 11:57 AM Note Text: This note was created using SIMIriter. Subjective Loraine Goff is a 82 year [...] after gets set up on Zoom and [employer]. PAST MEDICAL HISTORY Diagnosis Date Alzheimer disease [...] to do virtual visit. Anna Shanks MD [facility] 08-22-2022 History of Present illness Narrative This note was created using MOgeneter. Subjective Loraine Goff is a 82 year [...] Aguirre (neuro) after gets set up on [employer] and [employer]. PAST MEDICAL HISTORY Diagnosis Date Alzheimer disease [...] MD documented in this encounter [facility] 04-19-2022 Note HNO ID: [id number] Author: Randee Aguirre APRN.HOME CARE COMPANION Service: ? 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 -She receives assistance with bathing at the [facility]. -She has lost weight, she has difficulty [...] on file trung (more content not included)... [facility] 04-18-2022 Miscellaneous Notes Printed letter, please mail. [...] Abs Lymph 1.00 - 4.00 k/uL 2.86 Caswell% % 10.6 Abs Caswell <0.87 k/uL 0.83 Eosin% % 1.7 Abs [...] 1.15 documented in this encounter [facility] 04-04-2022 Note HNO ID: [id number] Author: Jocelyne Brown APRN.HOME CARE COMPANION Service: ? Author Type: Nurse Specialist Type: [...] care. Previously living / into followed in [place], now residing in [place]. No records available at the time of the visit. Presents with her niece Page. She is currently residing at [facility], certified medical transcriptionist is Dr. Guerrero. Previous primary physician: Dr. Pina Last seen: Sep 2018 Previous neurologist:Review of outside medications reveals she is taking memantine and donepizil for Alzheimers disease. per Dr. Scout Guillaume [facility] Last seen: Sep 2018 Diet:normal Mobility:active, no restriction Appetite: good Weight: stable Advanced directives:see scanned documents from [place], noted to be full code Reported history of stroke 3 years ago. No residual effects. Currently taking statin, aspirin, lisinopril. Last seen IM 02/2021. Noted to have further cognitive decline interspersed with days where she is back to normal. Has seen neurologist in November 2020. No reported behavioral issues. She was going to [facility]. Presents today with Laura Duarte who helps [...] she does not (more content not included)... [facility] 04-04-2022 Instructions Jocelyne Brown APRN.CNS - 04/04/2022 [...] assistance documented in this encounter [facility] 04-04-2022 History of Present illness Narrative [...] care. Previously living / into followed in [place], now residing in [place]. No records available at the time of the visit. Presents with her niece Page. She is currently residing at [facility], certified medical transcriptionist is Dr. Guerrero. Previous primary physician: Dr. Pina Last seen: Sep 2018 Previous neurologist:Review of outside medications reveals she is taking memantine and donepizil for Alzheimers disease. per Dr. Scout Guillaume [facility] Last seen: Sep 2018 Diet:normal Mobility:active, no [...] reported behavioral issues. She was going to [facility]. Presents today with Laura Duarte who helps [...] being able to observe when going to [place] during the week. Recommend lab work today. Reschedule neurology appointment. 6 to 12-month follow-up with MD Jocelyne De La Garza APRN.HOME CARE COMPANION Medical Decision Making: Problems: Moderate: 2+ stable chronic illnesses Data: Unique test(s) ordered: 3+ Risk: Moderate: Drug management Medical Decision Making Level: 4 - Moderate documented in this encounter [facility] 02-03-2022 Miscellaneous Notes Orders faxed to [...] 02/17/22. documented in this encounter [facility] 01-10-2022 Miscellaneous Notes Outgoing call to Ashley Mejía) at phone # [phone] to inquire about the virtual scheduled for today at 5:45 PM. There was no answer and no way to leave a VM, as the mailbox was full. Randee Aguirre APRN.CNS documented in this encounter [facility] 12-30-2021 Miscellaneous Notes Patient's niece called [...] make it feasible to come up from [place] for an appt. Ashley's is being newly treated for renal ca. I told Ashley that we couls schedule a virtual, she agreed, and call was transferred to Kenton Denson, Coordinator. Lorraine Landrum RN documented in this encounter [facility] 11-16-2021 Miscellaneous Notes Has February appt [...] every day by oral route at bedtime BEOT: No Authorizing Provider: ANNA SHANKS potassium chloride (K-TAB) 10 mEq tablet 90 tablet 1 Sig: Take 1 tablet by mouth daily with breakfast. BETO: No Authorizing Provider: ANNA SHANKS amLODIPine (NORVASC) 2.5 mg tablet 90 tablet 1 Sig: Take 1 tablet by mouth once daily. BETO: No Authorizing Provider: ANNA SHANKS rosuvastatin (CRESTOR) [...] Donovan documented in this encounter [facility] documented 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 Diagnosis Encounter for immunization- Primary [...] (HCC) 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 the event this information is protected by the Federal Confidentiality of Alcohol and Drug Abuse Patient Records regulations: The Federal rules restrict any use of the information to criminally investigate or prosecute any alcohol or drug abuse patient.[facility] the event this information is protected by the Federal Confidentiality of Alcohol and Drug Abuse Patient Records regulations: The Federal rules restrict any use of the information to criminally investigate or prosecute any alcohol or drug abuse patient.[facility] the event this information is protected by the Federal Confidentiality of Alcohol and Drug Abuse Patient Records regulations: The Federal rules restrict any use of the information to criminally investigate or prosecute any alcohol or drug abuse patient.[facility] the event this information is protected by the Federal Confidentiality of Alcohol and Drug Abuse Patient Records regulations: The Federal rules restrict any use of the information to criminally investigate or prosecute any alcohol or drug abuse patient.[facility] the event this information is protected by the Federal Confidentiality of Alcohol and Drug Abuse Patient Records regulations: The Federal rules restrict any use of the information to criminally investigate or prosecute any alcohol or drug abuse patient.[facility] the event this information is protected by the Federal Confidentiality of Alcohol and Drug Abuse Patient Records regulations: The Federal rules restrict any use of the information to criminally investigate or prosecute any alcohol or drug abuse patient.[facility] the event this information is protected by the Federal Confidentiality of Alcohol and Drug Abuse Patient Records regulations: The Federal rules restrict any use of the information to criminally investigate or prosecute any alcohol or drug abuse patient.[facility] the event this information is protected by the Federal Confidentiality of Alcohol and Drug Abuse Patient Records regulations: The Federal rules restrict any use of the information to criminally investigate or prosecute any alcohol or drug abuse patient.[facility] the event this information is protected by the Federal Confidentiality of Alcohol and Drug Abuse Patient Records regulations: The Federal rules restrict any use of the information to criminally investigate or prosecute any alcohol or drug abuse patient.[facility] the event this information is protected by the Federal Confidentiality of Alcohol and Drug Abuse Patient Records regulations: The Federal rules restrict any use of the information to criminally investigate or prosecute any alcohol or drug abuse patient.[facility] the event this information is protected by the Federal Confidentiality of Alcohol and Drug Abuse Patient Records regulations: The Federal rules restrict any use of the information to criminally investigate or prosecute any alcohol or drug abuse patient.[facility] the event this information is protected by the Federal Confidentiality of Alcohol and Drug Abuse Patient Records regulations: The Federal rules restrict any use of the information to criminally investigate or prosecute any alcohol or drug abuse patient.[facility] Reason for Visit (unrecogniz ed section and content) Reason Comments Appointment Reason Comments Transmission Line Engineer - Other [facility] virtual vis it pre-chart Reason Comments Missed Appointment Reason Comments Patient Question Reason Comments Physical Reason Comments Results Reason Comments Appointment LVM on MARCELLA Ramirez phone re: rescheduling missed appt with Emre Efrain on 07/25. Pt/Ashley may contact [facility] scheduling line at #opt #1 Reason Comments F/U 6 months Reason Comments Orders Reason Comments Follow Up Reason Onset Date Comments ACM WADE RN 11/28/2022 Medication Ad herence review per request of payer Care Teams (unrecognized sec tion and content) Supervisor Mixing Relationship Specialty Start Date End Date Anna Shanks MD [address] [place] [address] PCP - General Internal Medicine 05/20/19 Supervisor Mixing Relationship Specialty Start Date End Date Anna Shanks MD [facility] [place] [address] PCP - General Internal Medicine 05/20/19 Supervisor Mixing Relationship Specialty Start Date End Date Anna Shanks MD [address] [place] [address] PCP - General Internal Medicine 05/20/19 Supervisor Mixing Relationship Specialty Start Date End Date Anna Shanks MD [facility] [place] [address] PCP - General Internal Medicine 05/20/19 Supervisor Mixing Relationship Specialty Start Date End Date Anna Shanks MD [address] [place] [address] PCP - General Internal Medicine 05/20/19 Supervisor Mixing Relationship Specialty Start Date End Date Anna Shanks MD [address] [place] [address], [place] [address] PCP - General Internal Medicine 05/20/19 Supervisor Mixing Relationship Specialty Start Date End Date Anna Shanks MD [address] [place] [address] PCP - General Internal Medicine 05/20/19 Supervisor Mixing Relationship Specialty Start Date End Date Anna Shanks MD [address] [place] [address] PCP - General Internal Medicine 05/20/19 Supervisor Mixing Relationship Specialty [place] [address] [place] [address], [place] [address] PCP - General Internal Medicine 05/20/19 Supervisor Mixing Relationship Specialty Start Date End Date Anna Shanks MD [address] [place] [address] PCP - General Internal Medicine 05/20/19 Supervisor Mixing Relationship Specialty Start Date End Date Anna Shanks MD [address] [place] [address], [place] [address] PCP - General Internal Medicine 05/20/19 Supervisor Mixing Relationship Specialty [place] [address] [place] [address], [place] [address] PCP - General Internal Medicine 05/20/19 FOR [...] BE BASED ON THE PRIMARY CLINICAL RECORDS. [facility] [facility]. provides no warranty or guarantee of the accuracy or completeness of information in this document.
[2023-08-20 07:53] LABS: Hematocrit 38.5 % (37-47); Mean Corp Hgb Conc 31.2 g/dL (32-36); Mean Corpuscular Hgb 28.2 pg (27.0-32.0); Mean Corpuscular Volume 90.6 fL (81-99); Platelet Count 446 K/mm3 (150-450); RBC Distribution Width CV 12.9 % (11.6-14.6); RBC Distribution Width SD 42.7 fl (35.1-43.9); Red Blood Count 4.25 M/mm3 (4.2-5.4); White Blood Count 9.3 K/mm3 (4.4-11.0)
[2023-08-20 12:54] LABS: Anion Gap 8 (5-15); BUN 46 mg/dL (7-18); BUN/Creat Ratio 33.8 RATIO (10-20); Calcium,Total 9.2 mg/dL (8.5-10.1); Chloride 106 mmol/L (98-107); Cholesterol 197 mg/dL (200); Creatinine, Serum 1.36 mg/dL (0.55-1.02); EST Glomerular Filtration Rate 39 mL/min (>60); Est Glom Filt Rate - Afr Amer 48 mL/min (>60); Glucose 114 mg/dL (74-106); High Density Lipoprotein 37 mg/dL; Potassium 4.3 mmol/L (3.5-5.1); Sodium Level 140 mmol/L (136-145); Triglycerides 134 mg/dL; Very Low Density Lipoprotein 27 mg/dL (5-40)
== END ==
LOC: OLS.WCC 05:00
PROVIDERS: PCP Family Medicine; Visit Provider Family Medicine
DX: F03.90 Unspecified dementia, unspecified severity, without behavioral disturbance, psychotic disturbance, mood disturbance, and anxiety (principal); I10 Essential (primary) hypertension; R73.09 Other abnormal glucose; Z79.899 Other long term (current) drug therapy; Z86.73 Personal history of transient ischemic attack (TIA), and cerebral infarction without residual deficits
CPT/HCPCS: 36415; 80048; 80061; 85027

== ENCOUNTER 2023-09-17 16:55 | Emergency (ER) | payer MEDICARE, SELFPAY ==
[2023-09-17 16:57] VITALS: BP 143/90; PULSE 84; RESP 16; TEMP 36.2; O2SAT 98
--- NOTE | 2023-09-17 17:12 | CT_ITS ---
STUDY: CT CERVICAL SPINE WITHOUT CONTRAST REASON FOR EXAM: Female, 83 years old. Head injury RADIATION DOSAGE (If Supplied By Facility): CTDIvol = ( 12.05 ) mGy, DLP = ( 212.78 ) mGycm TECHNIQUE: High resolution transaxial imaging was performed without contrast material. Sagittal and coronal images were reconstructed. Individualized dose optimization techniques were used for this CT. COMPARISON: None FINDINGS: Normal craniovertebral junction. Normal anterior atlantoaxial articulation. Normal odontoid process. Normal cervical lordosis. Normal vertebral bodies and posterior osseous elements. Wedged compression fractures of T1 and T3 vertebral bodies, of questionable age. C2-3: Normal endplates. Normal disc height and morphology. Normal central canal and intervertebral neuroforamina. C3-4: Normal endplates. Normal disc height and morphology. Mild spurring protruding into the central canal. Facet hypertrophy and uncovertebral spurring narrowing the left intervertebral neural foramen. C4-5: Spurring at the endplates. Slightly narrowed disc height. Posterior spurring protruding into the central canal. Facet hypertrophy and uncovertebral spurring narrowing the intervertebral neuroforamina. C5-6: Normal endplates. Normal disc height and morphology. Normal central canal. Facet hypertrophy and uncovertebral spurring of the intervertebral neuroforamina, left more than right. C6-7: Normal endplates. Normal disc height and morphology. Normal central canal. Facet hypertrophy slightly narrowing the intervertebral neuroforamina. C7-T1: Normal endplates. Normal disc height and morphology. Normal central canal and intervertebral neuroforamina. Normal visualized soft tissue structures. CT/Spine Cervical without Contras IMPRESSION: Degenerative changes of the cervical spine. Wedge compression of T1 and T3, questionable age. Electronically Signed: Eleazar Ortiz DO at 18:19 EST Reading Location ID and State: [facility] / [place] Tel [phone], Service support ,
--- NOTE | 2023-09-17 17:12 | CT_ITS ---
STUDY: CT BRAIN WITHOUT CONTRAST REASON FOR EXAM: Female, 83 years old. head injury RADIATION DOSAGE (If Supplied By Facility): CTDIvol = ( 17.55 ) mGy, DLP = ( 310.55 ) mGycm TECHNIQUE: Transaxial CT imaging of the brain was performed without administration of intravenous contrast material. Individualized dose optimization techniques were used for this CT. COMPARISON: No relevant priors. FINDINGS: Right frontal scalp and nasal soft tissue injury. Normal calvarium. Prominent ventricles and extra-axial spaces with atrophy. Bilateral white matter microangiopathic ischemic changes of the cerebral hemispheres. Normal basal ganglia and thalami. Normal brainstem. Normal cerebellum. There is no intracranial hemorrhage. There are no findings of an acute ischemic infarction. Normal visualized paranasal sinuses. Nasal fracture. CT/Brain/Head without Contrast IMPRESSION: Atrophy and age-related changes of the brain. Right frontal scalp and nasal soft tissue injury. Nasal fracture. Electronically Signed: Eleazar Ortiz DO at 17:56 EST Reading Location ID and State: [facility] / [place] Tel [phone], Service support ,
--- NOTE | 2023-09-17 17:15 | RAD_ITS ---
INDICATION: fall EXAMINATION/TECHNIQUE: X-RAY - XR Pelvis 1 View COMPARISON: FINDINGS: PELVIC BONES: No displaced fracture, destructive or sclerotic lesions. Note that overlapping bowel shadows may however obscure fine detail. Sacroiliac joints are unremarkable. No widening of the pubic symphysis. HIPS: The articular structures are unremarkable. No displaced fracture seen in this frontal view. SOFT TISSUES: No soft tissue swelling or gas. RAD/Pelvis 1 or 2 Views IMPRESSION: No evidence of displaced pelvic or hip fracture. Electronically Signed: Eleazar Ortiz DO at 19:07 EST Reading Location ID and State: [facility] / [place] Tel [phone], Service support ,
--- NOTE | 2023-09-17 17:17 | RAD_ITS ---
INDICATION: injury EXAMINATION/TECHNIQUE: X-RAY - LEFT XR Knee 3 Views COMPARISON: FINDINGS: SOFT TISSUES: No soft tissue swelling or gas. No radiopaque foreign body. Vascular calcifications. BONES/JOINTS: No acute fracture or subluxation.. Normal alignment. Preservation of the joint space.. No sclerotic or destructive changes observed. RAD/Knee 3 Views IMPRESSION: No acute bony injury. Electronically Signed: Eleazar Ortiz DO at 19:14 EST ,
--- NOTE | 2023-09-17 17:17 | EDS_ITS ---
HPI <JOCELYN Wyatt - Last Filed: 09/17/23 20:11> History of Present Illness Chief Complaint: Fall Narrative Narrative: Patient presenting today due to a fall that occurred this afternoon. The fall was unwitnessed. She is in a group home facility due to history of dementia. She does have a history of frequent falls. She does have a laceration to her forehead and nose. Unsure when last tetanus was updated. She is A&O times zero which is her baseline. Tetanus Immunization: Unknown [facility] <JOCELYN Wyatt - Last Filed: 09/17/23 20:11> [facility] Medical History Alzheimer's disease, unspecified Aphagia Chronic kidney disease, stage 3a CVA (cerebral vascular accident) Dysphagia Essential (primary) hypertension Frequent falls Hyperlipidemia Lack of coordination Major depressive disorder, recurrent, mild Other abnormalities of gait and mobility Vascular dementia, unspecified severity, without behavioral disturbance, psychotic disturbance, mood disturbance, and anxiety Home Medications amlodipine 2.5 mg tablet 2.5 mg PO DAILY 08/04/23 [History Last Taken Unknown] aspirin 81 mg tablet,delayed release (Adult Aspirin Regimen) 81 mg PO DAILY 08/04/23 [History Last Taken Unknown] doxepin 25 mg capsule 25 mg PO QHS 08/04/23 [History Last Taken Unknown] escitalopram oxalate 10 mg tablet 10 mg PO DAILY 08/04/23 [History Last Taken Unknown] hydrochlorothiazide 25 mg tablet 25 mg PO DAILY 08/04/23 [History Last Taken Unknown] lisinopril 10 mg tablet 10 mg PO DAILY 08/04/23 [History Last Taken Unknown] melatonin 10 mg capsule 10 mg PO QHS 08/04/23 [History Last Taken Unknown] multivitamin (Daily Multi-Vitamin tablet) 1 tab PO DAILY 08/04/23 [History Last Taken Unknown] potassium chloride 10 mEq tablet,extended release (Klor-Con) 10 meq PO DAILY 08/04/23 [History Last Taken Unknown] sennosides 8.6 mg tablet (Natural Senna Laxative) 17.2 mg PO DAILY 08/04/23 [History Last Taken Unknown] cephalexin 500 mg capsule 500 mg PO TID 5 days #15 caps 09/17/23 [Rx Last Taken Unknown] mirtazapine 7.5 mg tablet 7.5 mg PO QHS 09/17/23 [History Last Taken Unknown] polyethylene glycol 3350 17 gram/dose oral powder (Miralax) 17 g PO DAILY 09/17/23 [History Last Taken Unknown] Allergy/AdvReac Type Severity Reaction Status Date / Time No Known Allergies Allergy Verified 09/17/23 17:08 Social History Smoking Status: Unknown if ever smoked ROS <JOCELYN Wyatt - Last Filed: 09/17/23 20:11> ROS ED Review of Systems ROS Unobtainable: other Details: Limited due to mental condition. Cardiovascular Cardiovascular: Denies chest pain Respiratory/Chest Respiratory/Chest: Denies dyspnea Gastrointestinal Gastrointestinal: Denies abdominal pain Musculoskeletal Musculoskeletal: Reports arthralgias Integumentary Reports laceration Psychiatric Psychiatric: Denies suicidal ideation EXAM <JOCELYN Wyatt - Last Filed: 09/17/23 20:11> Physical Exam Const Vital Signs: 09/17/23 16:57 09/17/23 17:04 09/17/23 18:49 Temperature 97.2 F L Temperature Source Temporal Pulse Rate 84 87 Respiratory Rate 16 14 Respiratory Effort Normal Non-Labored Respiratory Depth Normal Respiratory Pattern Normal Blood Pressure 143/90 H 165/91 H Blood Pressure Mean 107 115 Pulse Ox 98 99 Oxygen Delivery Method Room Air Room Air Room Air Positive well nourished, well developed and no apparent distress General Appearance ED: well developed HEENT Reports normocephalic and head/scalp atraumatic HEENT Narrative: 2.5 cm linear full-thickness laceration to the forehead, 2.5 cm full-thickness linear laceration to the bridge of the nose. Mouth ED: Yes moist mucous membranes normal Eyes PERRL and EOMs intact bilaterally Neck full ROM and supple Chest Wall inspection of chest normal Resp normal respiratory effort and clear to auscultation bilaterally Cardio regular rate and regular rhythm GI soft to palpation, non-tender, non-distended and no masses Back/Spine normal ROM and normal to inspection Extremity full ROM Extremity Narrative: Small abrasion to the left patella. Neuro oriented x3, CN's II-XII intact bilaterally, moves all extremities, no focal motor deficits and no sensory deficits noted Sensorium / Orientation: awake and alert Psych mental status grossly normal and thought process normal <Dr. Donnell Martin, DO - Last Filed: 09/17/23 18:46> Physical Exam Const Vital Signs: 09/17/23 16:57 09/17/23 17:04 09/17/23 18:49 Temperature 97.2 F L Temperature Source Temporal Pulse Rate 84 87 Respiratory Rate 16 14 Respiratory Effort Normal Non-Labored Respiratory Depth Normal Respiratory Pattern Normal Blood Pressure 143/90 H 165/91 H Blood Pressure Mean 107 115 Pulse Ox 98 99 Oxygen Delivery Method Room Air Room Air Room Air PROC <JOCELYN Wyatt - Last Filed: 09/17/23 20:11> Procedures Lacerations Laceration: Length: 2.5 cm Depth: Sub Q Shape: Linear Prep: Chlorhexadine Laceration repair: Irrigated, Lidocaine with epi, Skin sutures and Wound explored Number of Sutures/[place]: 7 Suture Information: Ethilon, Simple and 6-0 Comment: 3 stitches were placed to the bridge of patient's nose, 4 to patient's forehead MDM <JOCELYN Wyatt - Last Filed: 09/17/23 20:11> [facility] Narrative Medical decision making narrative: Patient presenting due to laceration to her forehead and nose due to a fall that occurred this afternoon. She is not providing much history due to her history of dementia. She is moving all extremities. She does have a small bruise to her left knee and does report that it hurts. X-ray of the left knee will be obtained. Chest x-ray and pelvic x-ray will be obtained to rule out fracture. Head and neck CT will be obtained to rule out intracranial bleed and cervical fracture. Lacerations will be copiously irrigated with normal saline and sutured. Tetanus will be updated. CT of the head does show a nasal fracture, CT of neck shows a indeterminate age fracture of T1 and T3. She will be placed on Keflex given that the laceration on her nose. She will be given an ENT referral. She will be discharged back to her SNF. I have personally performed a face to face assessment of the patient and have reviewed the MARI Note. I performed a substantive portion of the visit including all aspects of the following. My rae findings include: History is [patient presents to the emergency department from extended care facility after being found on the floor after a unwitnessed fall. She was noted to have lacerations to her nose and forehead. Patient has history of dementia and really cannot give any history. Patient not anticoagulated. Really cannot obtain much history from the patient.] Exam is [HEENT-PERRLA, EOMI. Cranial nerves II through XII grossly intact. TMs clear. Mucous membranes moist. No adenopathy. Patient has a 2.5 cm laceration mid forehead adjacent to right eyebrow. She has a 2.5 cm laceration over the bridge of the nose. No septal hematoma. No hemotympanum. Cardiovascular-regular rate and rhythm without murmur or ectopy Lungs-clear to auscultation, chest wall stable without crepitus or subcu emphysema Abdomen-normoactive bowel sounds, soft, nontender, no rebound or rigidity, no peritoneal signs. Extremities-intact ?4, normal range of motion, normal pulses. Left knee-patient has tenderness palpation over the left patella. There are some faint ecchymosis and bruising noted over the patella and proximal tibia. No obvious deformity. Neurovascular intact distally. Medical Decison Making [CT scan of the brain showed no acute process. She did have nasal fracture. CT C-spine showed compression fractures of T1 and T3 of indeterminate age. Sutures were repaired by PA please see procedure note. Patient will be started on Keflex and will be referred to ENT for follow-up. Sutures to be removed in 5 to 7 days.] Other additions or changes: [None] Radiography Diagnostic Testing: Clinical Impression(s) from Imaging Studies Brain CT 09/17/23 17:12 IMPRESSION: Atrophy and age-related changes of the brain. Right frontal scalp and nasal soft tissue injury. Nasal fracture. Electronically Signed: Eleazar Ortiz DO at 17:56 EST , Cervical Spine CT 09/17/23 17:12 IMPRESSION: Degenerative changes of the cervical spine. Wedge compression of T1 and T3, questionable age. Electronically Signed: Eleazar Ortiz DO at 18:19 EST , Pelvis X-Ray 09/17/23 17:15 IMPRESSION: No evidence of displaced pelvic or hip fracture. Electronically Signed: Eleazar Ortiz DO at 19:07 EST , Knee X-Ray 09/17/23 17:17 IMPRESSION: No acute bony injury. Electronically Signed: Eleazar Ortiz DO at 19:14 EST , Chest X-Ray 09/17/23 17:45 IMPRESSION: Mild basilar atelectasis. Electronically Signed: Eleazar Ortiz DO at 19:08 EST , <Dr. Donnell Martin, DO - Last Filed: 09/17/23 18:46> MDM MDM Narrative Medical decision making narrative: Patient presenting due to laceration to her forehead and nose due to a fall that occurred this afternoon. She is not providing much history due to her history of dementia. She is moving all extremities. She does have a small bruise to her left knee and does report that it hurts. X-ray of the left knee will be obtained. Chest x-ray and pelvic x-ray will be obtained to rule out fracture. Head and neck CT will be obtained to rule out intracranial bleed and cervical fracture. Lacerations will be copiously irrigated with normal saline and sutured. Tetanus will be updated. I have personally performed a face to face assessment of the patient and have reviewed the MARI Note. I performed a substantive portion of the visit including all aspects of the following. My rae findings include: History is [patient presents to the emergency department from [facility] after being found on the floor after a unwitnessed fall. She was noted to have lacerations to her nose and forehead. Patient has history of dementia and really cannot give any history. Patient not anticoagulated. Really cannot obtain much history from the patient.] Exam is [HEENT-PERRLA, EOMI. Cranial nerves II through XII grossly intact. TMs clear. Mucous membranes moist. No adenopathy. Patient has a 2.5 cm laceration mid forehead adjacent to right eyebrow. She has a 2.5 cm laceration over the bridge of the nose. No septal hematoma. No hemotympanum. Cardiovascular-regular rate and rhythm without murmur or ectopy Lungs-clear to auscultation, chest wall stable without crepitus or subcu emphysema Abdomen-normoactive bowel sounds, soft, nontender, no rebound or rigidity, no peritoneal signs. Extremities-intact ?4, normal range of motion, normal pulses. Left knee-patient has tenderness palpation over the left patella. There are some faint ecchymosis and bruising noted over the patella and proximal tibia. No obvious deformity. Neurovascular intact distally. Medical Decison Making [CT scan of the brain showed no acute process. She did have nasal fracture. CT C-spine showed compression fractures of T1 and T3 of indeterminate age. Sutures were repaired by PA please see procedure note. Patient will be started on Keflex and will be referred to ENT for follow-up. Sutures to be removed in 5 to 7 days.] Other additions or changes: [None] Radiography Diagnostic Testing: Clinical Impression(s) from Imaging Studies Brain CT 09/17/23 17:12 IMPRESSION: Atrophy and age-related changes of the brain. Right frontal scalp and nasal soft tissue injury. Nasal fracture. Electronically Signed: Eleazar Ortiz DO at 17:56 EST Reading Location ID and State: [place] / [place] Tel [phone], Service support , Cervical Spine CT 09/17/23 17:12 IMPRESSION: Degenerative changes of the cervical spine. Wedge compression of T1 and T3, questionable age. Electronically Signed: Eleazar Ortiz DO at 18:19 EST , Pelvis X-Ray 09/17/23 17:15 IMPRESSION: No evidence of displaced pelvic or hip fracture. Electronically Signed: Eleazar Ortiz DO at 19:07 EST , Knee X-Ray 09/17/23 17:17 IMPRESSION: No acute bony injury. Electronically Signed: Eleazar Ortiz, DO at 19:14 EST , Chest X-Ray 09/17/23 17:45 IMPRESSION: Mild basilar atelectasis. Electronically Signed: Eleazar Ortiz, DO at 19:08 EST , 1 view chest x-ray obtained interpreted by myself as no evidence of pneumothorax or infiltrate or acute process. Official report from radiology pending. 1 view x-ray of pelvis interpreted by myself as no evidence of fractures. 4 view x-rays of the left knee obtained interpreted by myself as no evidence of fracture or dislocation. Discharge Plan Triage Chief Complaint: Fall ED Midlevel Provider: Cari Baum ED Provider: Donnell Martin Dx/Rx/DC Orders Clinical Impression: Fracture, nasal, Contusion of knee, Facial laceration, Fall Instructions: ED Facial Fracture, ED Fall with Uncertain Cause, ED Laceration, All Closures Prescriptions: New cephalexin 500 mg capsule 500 mg PO TID 5 Days Qty: 15 0RF No Action amlodipine 2.5 mg tablet 2.5 mg PO DAILY Hold Instructions: Pt has been DC'd aspirin [Adult Aspirin Regimen] 81 mg tablet,delayed release (DR/EC) 81 mg PO DAILY doxepin 25 mg capsule 25 mg PO QHS Hold Instructions: Pt has been DC'd escitalopram oxalate 10 mg tablet 10 mg PO DAILY hydrochlorothiazide 25 mg tablet 25 mg PO DAILY Hold Instructions: Pt has been DC'd potassium chloride [Klor-Con 10] 10 mEq tablet extended release 10 meq PO DAILY Hold Instructions: Pt has been DC'd lisinopril 10 mg tablet 10 mg PO DAILY melatonin 10 mg capsule 10 mg PO QHS multivitamin [Daily Multi-Vitamin] Tablet 1 tab PO DAILY sennosides [Natural Senna Laxative] 8.6 mg tablet 17.2 mg PO DAILY polyethylene glycol 3350 [Miralax] 17 gram/dose powder 17 g PO DAILY mirtazapine 7.5 mg tablet 7.5 mg PO QHS Primary Care Provider: Biju Camacho Referrals: Biju Camacho MD [Primary Care Provider] - Sergey Solomon MD [Med Staff - Active Staff] - 1 Week Activity Restrictions/Additional Instructions: Follow-up with ENT regarding the nasal fracture. Have stitches removed in 5 to 7 days. Disposition Disposition: Home, Self Care
--- NOTE | 2023-09-17 17:45 | RAD_ITS ---
INDICATION: fall EXAMINATION/TECHNIQUE: X-RAY - XR Chest 2 Views COMPARISON: FINDINGS: LINES/DEVICES: None. LUNGS: No consolidation, edema or effusion. Mild basilar atelectasis. No pneumothorax. MEDIASTINUM AND CARDIOVASCULAR STRUCTURES: Cardiac silhouette not enlarged. Central airways and mediastinal contour are unremarkable. BONES AND SOFT TISSUES: Unremarkable. RAD/Chest PA and Lateral IMPRESSION: Mild basilar atelectasis. Electronically Signed: Eleazar Ortiz DO at 19:08 EST ,
[2023-09-17] MEDS: Lidocaine 1% /Epi 1:100 (20ml) 20 ML Vial 10 ML INFILT (17:57)
[2023-09-17] MEDS: Diphth,Pertuss(Acell),Tet Vac 0.5 ML Vial IM (17:57)
--- NOTE | 2023-09-17 18:37 | ED.RN ---
1837: spoke with Ashley Duarte regarding pt. status, notified we are waiting on imaging results.
[2023-09-17] MEDS: Cephalexin 250 MG Capsule 500 MG PO (18:41)
[2023-09-17 18:49] VITALS: BP 165/91; PULSE 87; RESP 14; O2SAT 99
--- NOTE | 2023-09-17 19:19 | ED.RN ---
1918: spoke with Ashley about patient dispo, no additional information to provide at this time d/t pending results
--- NOTE | 2023-09-17 19:35 | ED.RN ---
1934: spoke with Ignacia Mccloud, at [facility] about patient d/c back to facility
[2023-09-18] VITALS: BP 117/74; PULSE 88; RESP 12; O2SAT 99
== END 2023-09-18 01:30 | disposition home or self-care (01) ==
PROVIDERS: Emergency Provider Emergency Medicine; PCP Family Medicine; Visit Provider Emergency Medicine
DX: S02.2XXA Fracture of nasal bones, initial encounter for closed fracture (principal); S22.019A Unspecified fracture of first thoracic vertebra, initial encounter for closed fracture; F03.90 Unspecified dementia, unspecified severity, without behavioral disturbance, psychotic disturbance, mood disturbance, and anxiety; N18.31 Chronic kidney disease, stage 3a; S01.81XA Laceration without foreign body of other part of head, initial encounter; S80.00XA Contusion of unspecified knee, initial encounter; Z79.82 Long term (current) use of aspirin; Z79.899 Other long term (current) drug therapy; Z23 Encounter for immunization; Z86.73 Personal history of transient ischemic attack (TIA), and cerebral infarction without residual deficits; W19.XXXA Unspecified fall, initial encounter
CPT/HCPCS: 12011; 70450; 71046; 72125; 72170; 73562; 90471; 90715; 99284

== ENCOUNTER → 2023-09-20 | Outpatient (REF) | payer MEDICARE, SELFPAY ==
--- OUTSIDE RECORDS SUMMARY | 2023-09-20 03:41 | XMS RPT_ITS | CCD ---
Author Name Unknown Address [address] [place] [address] Organization [facility] Care Team Providers Care Overlay Plastician Name Role Phone Anna Shanks MD Primary Care Provider ANNA SHANKS Primary Care Unavailable RANDEE AGUIRRE Attending Unavailable BROWN, JOCELYNE Referring Unavailable TALAMPSAJI, ANNA D Primary Care Unavailable RADHA BROWNI Referring Unavailable SUSANA, JOCELYNE Attending Unavailable MANDEEPAMPSAJI, ANNA Ruth Primary Care Unavailable MANDEEPAMPSAJI, ANNA [...] 13:28-040 Body weight 53.52 kg Jocelyne Brown APRN.VEGETABLE FARM WORKER Work Phone: [facility] 11-03-2022 13:28-040 Diastolic blood pressure 56 mm[Hg] Jocelyne Brown APRN.VEGETABLE FARM WORKER Work Phone: [facility] 11-03-2022 13:28-0400 Heart rate 60 /min Jocelyne Brown IT DATA ARCHITECT.VEGETABLE FARM WORKER Work Phone: [facility] 11-03-2022 13:28-0400 Respiratory rate 14 /min Jocelyne Brown IT DATA ARCHITECT.VEGETABLE FARM WORKER Work Phone: [facility] 11-03-2022 13:28-0400 SaO2% (BldA) [Mass fraction] 98 % Jocelyne Brown IT DATA ARCHITECT.VEGETABLE FARM WORKER Work Phone: [facility] 11-03-2022 13:28-0400 Systolic blood pressure 108 mm[Hg] Jocelyne Brown IT DATA ARCHITECT.VEGETABLE FARM WORKER Work Phone: [facility] 08-22-2022 18:36-0500 Body temperature 98.1 [degF] Anna Shanks MD Work Phone: [facility] 08-22-2022 18:36-0500 Body weight 52.94 kg Anna Shanks MD Work Phone: [facility] 08-22-2022 18:36-0500 Diastolic blood pressure 82 mm[Hg] Anna Shanks MD Work Phone: [facility] 08-22-2022 18:36-0500 Heart rate 87 /min Anna Shanks MD Work Phone: [facility] 08-22-2022 18:36-0500 Respiratory rate 18 /min Anna Shanks MD Work Phone: [facility] 08-22-2022 18:36-0500 SaO2% (BldA) [Mass fraction] 95 % Anna Shanks MD Work Phone: [facility] 08-22-2022 18:36-0500 Systolic blood pressure 124 mm[Hg] Anna Shanks MD Work Phone: [facility] 04-04-2022 09:44-0400 Body height 146.1 cm Jocelyne Brown IT DATA ARCHITECT.VEGETABLE FARM WORKER Work Phone: [facility] 04-04-2022 09:44-0400 Body weight 52.16 kg Jocelyne Brown IT DATA ARCHITECT.VEGETABLE FARM WORKER Work Phone: [facility] 04-04-2022 09:44-0400 Diastolic blood pressure 58 mm[Hg] Jocelyne Brown IT DATA ARCHITECT.VEGETABLE FARM WORKER Work Phone: [facility] 04-04-2022 09:44-0400 Heart rate 60 /min Jocelyne Costellos IT DATA ARCHITECT.VEGETABLE FARM WORKER Work Phone: [facility] 04-04-2022 09:44-0400 Respiratory rate 16 /min Jocelyne Costellos IT DATA ARCHITECT.VEGETABLE FARM WORKER Work Phone: [facility] 04-04-2022 09:44-0400 Systolic blood pressure 108 mm[Hg] Jocelyne Costellos IT DATA ARCHITECT.VEGETABLE FARM WORKER Work Phone: [facility] Encounters Encounter Date Encounter Type Care Provider Facility Start: 11-28-2022 ambulatory Patito Parra RN [facility] Procedures Date Procedure Procedure Detail Performing Clinician Start: 09-18-2022 Follow-up visit Follow Up WESTON AGUIRRE Start: 08-22-2022 INFLUENZA SEASONAL QUADRIVALENT HIGH DOSE AGE 65+ Anna Shanks MD Work Phone: Plan of Treatment Date Care Activity Detail Author Start: 11-03-2025 DIABETES SCREEN DIABETES SCREEN [facility] Start: 04-04-2025 DIABETES SCREEN DIABETES SCREEN [facility] Start: 11-28-2023 DIABETES SCREEN DIABETES SCREEN [facility] Start: 08-22-2023 SHINGRIX VACCINE (1 of 2) SHINGRIX V ACCINE (1 of 2) [facility] Immunizations Immunization Date Immunization Notes Care Provider Rohit carlisle 08-22-2022 influenza, high-dose , quadrivalent vaccine (FLUZONE HIGH DOSE QUADRIVALENT) Anna Shanks MD Work Phone: [facility] 10-10-2021 COVID-19 vaccine, ag e 12+ yr (PFIZER-BIONTECH - MARINELLI TOP) Whitney Espino [facility] Work Phone: 12-17-2020 COVID-19 vaccine, ag e 12+ yr (PFIZER-BIONTECH - PURPLE TOP) Whitney Espino [facility] Work Phone: 11-26-2020 COVID-19 vaccine, ag e 12+ yr (PFIZER-BIONTSmallRivers - PURPLE TOP) [facility] 08-17-2020 influenza, high-dose , quadrivalent vaccine (FLUZONE HIGH DOSE QUADRIVALENT) [facility] 08-29-2019 pneumococcal polysaccharide vaccine, 23 valent [facility] 08-22-2019 influenza, high dose seasonal, preservative-free [facility] 04-25-2018 influenza, high dose seasonal, preservative-free [facility] 04-20-2017 influenza, high dose seasonal, preservative-free [facility] 09-07-2015 pneumococcal conjuga te vaccine, 13 valent [facility] Payers Date Payer Category Payer Medicare UHC AAR MEDICAR E UHC AARP MEDICARE HMO [id number] 2019-Present [phone] [address] [address] [place] [address] [facility] [id number] 2019 Medicare UHC AAR MEDICAR E UHC AARP MEDICARE HMO [id number] 2019-Present [phone] [address] [address] [place] [address] [facility] [id number] 2019 Medicare [id number] Social History Date Type Detail Facility Start: 02-27-2019 End: 04-04-2022 Tobacco smoking status NHIS Never smoked tobacco [facility] Work Phone: Start: 02-27-2019 End: 04-04-2022 Tobacco use and exposure Smokeless tobacco non-user [facility] Work Phone: Start: 02-23-2021 End: 11-03-2022 Alcohol intake Lifetime non-drinker (finding) [facility] Start: 02-14-2021 History SDOH Alcohol Frequency 1 [facility] Start: 02-14-2021 History SDOH Alcohol Std Drinks 98 [facility] Start: 05-22-2019 History SDOH Alcohol Comment none [facility] Start: 02-14-2021 History SDOH Social Connections Phone 2 [facility] Start: 02-14-2021 History SDOH Social Connections Get Together 5 [facility] Start: 02-14-2021 History SDOH Social Connections Living 7 [facility] Start: 02-14-2021 Education 17 [facility] Start: 1940 Sex Assigned At Not on file [facility] Start: 03-25-2022 End: 04-04-2022 Exposure to SARS-CoV-2 (event) Not sure [facility] Work Phone: Clinical Notes 11-16-2021 to 11-28-2022 Patito Parra RN - 11/28/2022 5:52 AM Aisha Brown APRN.VEGETABLE FARM WORKER - 11/03/2022 1:20 PM EDTTelephone Encounter - Josefina García LPN - 10/31/2022 11:17 AM EDTPatient Instructions Note Date & Type Note Facility 11-28-2022 Note Patient Outreach (NE TNAV) LORAINE GOFF ([id number]) 1940 F Date Time Provider Department 11/28/22 PATITO PARRA During your visit today, we recorded the following information about you: Patito Parra RN 11/28/2022 5:55 AM Signed ACM WADE RN Action/FYI: Medication Adherence review completed per request of [facility]. NO PROVIDER ACTION REQUIRED Please see requests in the Summary/Findings section below Patient identified by name and date of . Patient Attributed To: QAE Payer: [facility] Reason for review or outreach: Medication Adherence Medication Adherence Review Details: Cholesterol and Hypertension Summary / Findings: Patient is now living at [facility] where they take care of her meds Action Taken: Data submitted to Payer Other Contact made with patient: No, Chart review only. Signature: Patito Parra RN Allergies As of Date: 11/28/2022 (No Known Allergies) Date Reviewed: 11/03/2022 Reviewed by: Jennifer Trimble LPN - Fully Assessed Reason for Visit: ACM WADE RN [[id number]] Cmt: Medication Adherence review per request of [...] Encounter Status:Closed by PATITO PARRA on 11/28/[address] [facility] 11-28-2022 Note HNO ID: [id number] Author: Patito Parra RN Service: ? Author Type: Registered Nurse Type: Progress Notes Filed: 11/28/2022 5:55 AM Note Text: ACM WADE RN Action/FYI: Medication Adherence review completed per request of [facility]. NO PROVIDER ACTION REQUIRED Please see requests in the Summary/Findings section below Patient identified by name and date of . Patient Attributed To: CANDELARIA Payer: [employer] Reason for review or outreach: Medication Adherence Medication Adherence Review Details: Cholesterol and Hypertension Summary / Findings: Patient is now living at [facility] where they take care of her meds Action Taken: Data submitted to Pay Other Contact made with patient: No, Chart review only. Signature: Patito Parra RN [facility] 11-28-2022 History of Present illness Narrative ACM WADE RN Action/FYI: Medication Adherence review completed per request of [facility]. NO PROVIDER ACTION REQUIRED Please see requests in the Summary/Findings section below Patient identified by name and date of . Patient Attributed To: QAE Payer: [employer] Reason for review or outreach: Medication Adherence Medication Adherence Review Details: Cholesterol and Hypertension Summary / Findings: Patient is now living at [facility] where they take care of her meds Action Taken: Data submitted to Pay Other Contact made with patient: No, Chart review only. Signature: Patito Parra RN documented in this encounter [facility] 11-03-2022 Note HNO ID: [id number] Author: Jocelyne Brown APRN.VEGETABLE FARM WORKER Service: ? Author Type: Nurse Specialist Type: [...] need of exam prior to admission to [facility] / SNF. Presents today with family member [...] Use: Never u (more content not included)... [facility] 11-03-2022 History of Present illness Narrative [...] need of exam prior to admission to [facility] / SNF. Presents today with family member [...] Abs Lymph 1.00 - 4.00 k/uL 2.86 Harding% % 10.6 Abs Harding <0.87 k/uL 0.83 Eosin% % 1.7 Abs [...] continue to monitor. Followed by neurology provider [facility] - follow up March 2023 advised, needs [...] work today, will send when complete to [facility] Schedule neurology appointment. 6 month follow-up with Anna Shanks MD Fax form to [phone] per request. Jocelyne Brown APRN.VEGETABLE FARM WORKER Medical Decision Making: Problems: Moderate: 2+ stable chronic illnesses Data: Unique test(s) ordered: 3+ Risk: Low: Low risk from testing/treatment Medical Decision Making Level: 4 - Moderate documented in this encounter [facility] 10-31-2022 Miscellaneous Notes Faxed last office visit, demographic sheet, Immunization Record, Labs to: Attn: Charly, . Josefina García LPN Asia calling stating patient will be moving to [facility]. Admission form is needing updated information. Please fax the most recent physical notes, last labs, office notes and any test results from the previous year. Attn: Charly documented in this encounter [facility] 10-17-2022 Miscellaneous Notes Ashley aware of same. Order placed, please return call and let them know, thanks! Asia Ramirez calling asking for a TB Gold test to be ordered. Please advise and call Ashley. documented in this encounter [facility] 09-18-2022 Note HNO ID: [id number] Author: Randee Aguirre APRN.VEGETABLE FARM WORKER Service: ? Author Type: Nurse Specialist Type: Progress Notes Filed: 09/18/2022 3:09 PM Note Text: Loraine Goff [address] [facility] [id number] September 16, 2022 Time: 10:53 AM Center [...] as the day goes on -she attends [facility] in [place] 3 days per week- -they feel she [...] Never Social History reviewed by Randee Aguirre APRN.VEGETABLE FARM WORKER OBJECTIVE Current Outpatient Medications on File Prior [...] preparing to s (more content not included)... [facility] 08-22-2022 Note HNO ID: [id number] Author: Anna Shanks MD Service: ? Author Type: Physician Type: Progress Notes Filed: 09/19/2022 11:57 AM Note Text: This note was created using Skytapriter. Subjective Loraine Goff is a 82 year [...] after gets set up on Zoom and [employer]. PAST MEDICAL HISTORY Diagnosis Date Alzheimer disease [...] to do virtual visit. Anna Shanks MD [facility] 08-22-2022 History of Present illness Narrative This note was created using Step Labster. Subjective Loraine Goff is a 82 year [...] Aguirre (neuro) after gets set up on [employer] and [employer]. PAST MEDICAL HISTORY Diagnosis Date Alzheimer disease [...] Anna Shanks MD documented in this encounter [facility] 04-19-2022 Note HNO ID: [id number] Author: Randee Aguirre APRN.VEGETABLE FARM WORKER Service: ? Author Type: Nurse Specialist Type: Progress Notes Filed: 04/20/2022 4:47 PM Note Text: Loraine Goff [address] 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 -She receives assistance with bathing at the [facility]. -She has lost weight, she [...] on file trung (more content not included)... [facility] 04-18-2022 Miscellaneous Notes Printed letter, please [...] Abs Lymph 1.00 - 4.00 k/uL 2.86 Harding% % 10.6 Abs Harding <0.87 k/uL 0.83 Eosin% % 1.7 Abs [...] Ratio <2.54 1.15 documented in this encounter [facility] 04-04-2022 Note HNO ID: [id number] Author: Jocelyne Brown APRN.VEGETABLE FARM WORKER Service: ? Author Type: Nurse Specialist Type: [...] care. Previously living / into followed in [place], now residing in [place]. No records available at the time of the visit. Presents with her niece Page. She is currently residing at [facility], rn medical surgical is Dr. Guerrero. Previous primary physician: Dr. Pina Last seen: Sep 2018 Previous neurologist:Review of outside medications reveals she is taking memantine and donepizil for Alzheimers disease. per Dr. Scout Guillaume [facility] Last seen: Sep 2018 Diet:normal Mobility:active, no restriction Appetite: good Weight: stable Advanced directives:see scanned documents from [place], noted to be full code Reported history of stroke 3 years ago. No residual effects. Currently taking statin, aspirin, lisinopril. Last seen IM 02/2021. Noted to have further cognitive decline interspersed with days where she is back to normal. Has seen neurologist in November 2020. No reported behavioral issues. She was [place] [facility] Presents today with Laura Duarte who helps [...] she does not (more content not included)... [facility] 04-04-2022 Instructions Jocelyne Brown APRN.CNS - [...] any additional assistance documented in this encounter [facility] 04-04-2022 History of Present illness Narrative Subjective [...] care. Previously living / into followed in [place], now residing in [place]. No records available at the time of the visit. Presents with her niece Page. She is currently residing at [facility], rn medical surgical is Dr. Guerrero. Previous primary physician: Dr. Pina Last seen: Sep 2018 Previous neurologist:Review of outside medications reveals she is taking memantine and donepizil for Alzheimers disease. per Dr. Scout Guillaume [facility] Last seen: Sep 2018 Diet:normal Mobility:active, no [...] reported behavioral issues. She was going [place] [facility] [place]. Presents today with Laura Duarte who helps [...] being able to observe when going to [place] during the week. Recommend lab work today. Reschedule neurology appointment. 6 to 12-month follow-up with MD Jocelyne De La Garza APRN.VEGETABLE FARM WORKER Medical Decision Making: Problems: Moderate: 2+ stable chronic illnesses Data: Unique test(s) ordered: 3+ Risk: Moderate: Drug management Medical Decision Making Level: 4 - Moderate documented in this encounter [facility] 02-03-2022 Miscellaneous Notes Orders faxed to shona [...] Shanks on 02/17/22. documented in this encounter [facility] 01-10-2022 Miscellaneous Notes Outgoing call to Ashley Mejía) at phone # [phone] to inquire about the virtual scheduled for today at 5:45 PM. There was no answer and no way to leave a VM, as the mailbox was full. Randee Aguirre APRN.CNS documented in this encounter [facility] 12-30-2021 Miscellaneous Notes Patient's niece called and [...] make it feasible to come up from [place] for an appt. Ashley's is being newly treated for renal ca. I told Ashley that we couls schedule a virtual, she agreed, and call was transferred to Kenton Densno, Coordinator. Lorraine Landrum RN documented in this encounter [facility] 11-16-2021 Miscellaneous Notes Has February appt Missed [...] advise. 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) Balance problem Other symptoms involving nervous and musculoskeletal systems Abnormality of gait and mobility Abnormality of gait [facility] Diagnosis Encounter for immunization- Primary Need [...] kidney disease (HCC) [facility] Diagnosis Primary hypertension- Primary Unspecified essential hypertension Impaired glucose metabolism Impaired glucose tolerance test 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) Alzheimer disease (HCC) Alzheimer's disease Hyperlipidemia, unspecified hyperlipidemia type Encounter for immunization Need for other specified prophylactic vaccination against single bacterial disease documented in this encounter [facility] note* Diagnosis Screening-pulmonary TB- Primary Screening examination for pulmonary tuberculosis documented in this encounter [facility] note* Diagnosis Alzheimer disease (HCC)- Primary [...] kidney disease (HCC) documented in this encounter [facility] Summary Purpose Family History No Family History Records FoundNo Family History Records Found Advance Directives No Advanced Directives Records FoundDocuments on File Type Date Recorded Patient Creative/Art Director Expl anation Advance Directive(s) 02/28/2019 10:54 AM Additional Source Comments INFORMATION SOURCE (unrecogn ized section and content) DATE CREATED AUTHOR AUTHOR'S ORGANIZ ATION 11/29/[address] [facility] Source Comments (unrecognize d section and content) In the event this informatio n is protected by the Federal Confidentiality of Alcohol and Drug Abuse Patient Records regulations: The Federal rules restrict any use of the information to criminally investigate or prosecute any alcohol or drug abuse patient.[facility] the event this information is protected by the Federal Confidentiality of Alcohol and Drug Abuse Patient Records regulations: The Federal rules restrict any use of the information to criminally investigate or prosecute any alcohol or drug abuse patient.[facility] the event this information is protected by the Federal Confidentiality of Alcohol and Drug Abuse Patient Records regulations: The Federal rules restrict any use of the information to criminally investigate or prosecute any alcohol or drug abuse patient.[facility] the event this information is protected by the Federal Confidentiality of Alcohol and Drug Abuse Patient Records regulations: The Federal rules restrict any use of the information to criminally investigate or prosecute any alcohol or drug abuse patient.[facility] the event this information is protected by the Federal Confidentiality of Alcohol and Drug Abuse Patient Records regulations: The Federal rules restrict any use of the information to criminally investigate or prosecute any alcohol or drug abuse patient.[facility] the event this information is protected by the Federal Confidentiality of Alcohol and Drug Abuse Patient Records regulations: The Federal rules restrict any use of the information to criminally investigate or prosecute any alcohol or drug abuse patient.[facility] the event this information is protected by the Federal Confidentiality of Alcohol and Drug Abuse Patient Records regulations: The Federal rules restrict any use of the information to criminally investigate or prosecute any alcohol or drug abuse patient.[facility] the event this information is protected by the Federal Confidentiality of Alcohol and Drug Abuse Patient Records regulations: The Federal rules restrict any use of the information to criminally investigate or prosecute any alcohol or drug abuse patient.[facility] the event this information is protected by the Federal Confidentiality of Alcohol and Drug Abuse Patient Records regulations: The Federal rules restrict any use of the information to criminally investigate or prosecute any alcohol or drug abuse patient.[facility] the event this information is protected by the Federal Confidentiality of Alcohol and Drug Abuse Patient Records regulations: The Federal rules restrict any use of the information to criminally investigate or prosecute any alcohol or drug abuse patient.[facility] the event this information is protected by the Federal Confidentiality of Alcohol and Drug Abuse Patient Records regulations: The Federal rules restrict any use of the information to criminally investigate or prosecute any alcohol or drug abuse patient.[facility] the event this information is protected by the Federal Confidentiality of Alcohol and Drug Abuse Patient Records regulations: The Federal rules restrict any use of the information to criminally investigate or prosecute any alcohol or drug abuse patient.[facility] the event this information is protected by the Federal Confidentiality of Alcohol and Drug Abuse Patient Records regulations: The Federal rules restrict any use of the information to criminally investigate or prosecute any alcohol or drug abuse patient.[facility] Reason for Visit (unrecogniz ed section and content) Reason Comments Appointment Reason Comments Manager Developmental - Other [facility] virtual vis it pre-chart Reason Comments Missed Appointment Reason Comments Patient Question Reason Comments Physical Reason Comments Results Reason Comments Appointment LVM on MARCELLA Ramirez phone re: rescheduling missed appt with Emre Efrain on 07/25. Pt/Ashley may contact [facility] MANISHA scheduling line at #opt #1 Reason Comments F/U 6 months Reason Comments Orders Reason Comments Follow Up Reason Onset Date Comments ACM WADE RN 11/28/2022 Medication Ad herence review per request of payer Care Teams (unrecognized sec tion and content) Overlay Plastician Relationship Specialty Start Date End Date Anna Shanks MD [address] [place] [address] PCP - General Internal Medicine 05/20/19 Overlay Plastician Relationship Specialty Start Date End Date Anna Shanks MD [facility] [place] [address] PCP - General Internal Medicine 05/20/19 Overlay Plastician Relationship Specialty Start Date End Date Anna Shanks MD [address] [place] [address] PCP - General Internal Medicine 05/20/19 Overlay Plastician Relationship Specialty Start Date End Date Anna Shanks MD [facility] [place] [address] PCP - General Internal Medicine 05/20/19 Overlay Plastician Relationship Specialty Start Date End Date Anna Shanks MD [address] [place] [address] PCP - General Internal Medicine 05/20/19 Overlay Plastician Relationship Specialty Start Date End Date Anna Shanks MD [address] [place] [address], [place] [address] PCP - General Internal Medicine 05/20/19 Overlay Plastician Relationship Specialty Start Date End Date Anna Shanks MD [address] [place] [address] PCP - General Internal Medicine 05/20/19 Overlay Plastician Relationship Specialty Start Date End Date Anna Shanks MD [address] [place] [address] PCP - General Internal Medicine 05/20/19 Overlay Plastician Relationship Specialty [place] [address] [place] [address], [place] [address] PCP - General Internal Medicine 05/20/19 Overlay Plastician Relationship Specialty Start Date End Date Anna Shanks MD [address] [place] [address] PCP - General Internal Medicine 05/20/19 Overlay Plastician Relationship Specialty Start Date End Date Anna Shanks MD [address] [place] [address], [place] [address] PCP - General Internal Medicine 05/20/19 Overlay Plastician Relationship Specialty [place] [address] [place] [address], [place] [address] PCP - General Internal Medicine 05/20/19 FOR [...] BE BASED ON THE PRIMARY CLINICAL RECORDS. [facility]. provides no warranty or guarantee of the accuracy or completeness of information in this document.
[2023-09-20 08:29] LABS: Hemoglobin 10.6 g/dL (12.0-15.0); Mean Corp Hgb Conc 31.2 g/dL (32-36); Mean Corpuscular Hgb 28.3 pg (27.0-32.0); Mean Corpuscular Volume 90.7 fL (81-99); Platelet Count 301 K/mm3 (150-450); RBC Distribution Width CV 13.7 % (11.6-14.6); RBC Distribution Width SD 45.8 fl (35.1-43.9); Red Blood Count 3.75 M/mm3 (4.2-5.4); White Blood Count 6.6 K/mm3 (4.4-11.0)
[2023-09-20 08:46] LABS: Anion Gap 4 (5-15); BUN 21 mg/dL (7-18); BUN/Creat Ratio 30.2 RATIO (10-20); Calcium,Total 8.8 mg/dL (8.5-10.1); Chloride 114 mmol/L (98-107); EST Glomerular Filtration Rate 85 mL/min (>60); Est Glom Filt Rate - Afr Amer 103 mL/min (>60); Glucose 94 mg/dL (74-106); Potassium 3.9 mmol/L (3.5-5.1); Sodium Level 144 mmol/L (136-145)
== END ==
LOC: OLS.WCC 04:00
PROVIDERS: PCP Family Medicine; Referring Provider Family Medicine; Visit Provider Family Medicine
DX: I10 Essential (primary) hypertension (principal); R73.09 Other abnormal glucose; Z86.73 Personal history of transient ischemic attack (TIA), and cerebral infarction without residual deficits
CPT/HCPCS: 36415; 80048; 85027